=== PATIENT | male | born 1950 | race Caucasian/White ===

== ENCOUNTER → 2019-02-09 | Outpatient (CLI) | payer SELFPAY | PROVIDERS: Family Provider Family Medicine; PCP Family Medicine; Visit Provider Urology | DX: N20.0 Calculus of kidney (principal); I87.8 Other specified disorders of veins; M43.8X6 Other specified deforming dorsopathies, lumbar region | CPT/HCPCS: 74018 ==

== ENCOUNTER 2019-02-24 14:26 | Outpatient (CLI) | payer MEDICARE, OTHER, SELFPAY ==
--- NOTE | 2019-02-24 14:36 | XRR_ITS ---
PROCEDURE INFORMATION: Exam: XR Abdomen, 1 View Exam date and time: 02/24/2019 2:54 PM Age: 68 years old Clinical indication: Condition or disease; Other: Renal calculi TECHNIQUE: Imaging protocol: XR of the abdomen. Views: Frontal supine view of the abdomen. 1 View. COMPARISON: CR KUB (Abdomen) [id number] 02/09/2019 10:39 AM FINDINGS: Gastrointestinal tract: There is mildly increased stool noted in the ascending colon. Organs: RIGHT mid-upper lateral renal 2.2 mm calyceal calculus. The previous RIGHT renal lower pole calyceal calculus is not currently identified. LEFT upper renal calculi redemonstrated, the largest in the 5 mm. Vasculature: LEFT pelvic phleboliths. Bones/joints: Thoracic spine vertebral body marginal osteophytes are noted at multiple levels. Mild rightward lumbar spinal curvature. Bilateral lower lumbar facet primary osteoarthritis. XR/XR KUB [id number] IMPRESSION: 1. Bilateral renal calyceal lithiasis, similar to preceding study with exception of nonvisible a very previously demonstrated RIGHT renal lower pole calyceal calculus. 2. Mild RIGHT abdominal colonic constipation.
== END 2019-02-24 14:27 | disposition home or self-care (01) ==
PROVIDERS: Family Provider Family Medicine; PCP Family Medicine; Visit Provider Urology
DX: N20.0 Calculus of kidney (principal); K59.00 Constipation, unspecified
CPT/HCPCS: 74018; 81001

== ENCOUNTER 2020-02-23 12:47 | Outpatient (CLI) | payer MEDICARE, OTHER, SELFPAY ==
--- NOTE | 2020-02-23 13:00 | XR_ITS ---
WS: [id number] KUB, 02/23/2020 Clinical Data: KIDNEY AND URETERAL STONE Comparison: KUB, 02/24/2019. Findings: No abnormal intraabdominal masses or calcifications are seen. There is no dilatated small bowel or ev idence of obstruction. There is a decreased amount of gas in the left-sided abdomen and this could be secondary to fluid-juanjose led bowel loops or perhaps a left abdominal mass. Degenerative change of the dextroscoliosis of the l umbar spine is seen. XR/XR KUB [id number] Impression: 1. Negative for definite renal or ureteral calculi. 2.. Decrease in gas in left side of the abdomen which could be secondary to fluid-f illed bowel loops or a left abdominal mass.
== END 2020-02-23 12:48 | disposition home or self-care (01) ==
PROVIDERS: PCP Family Medicine; Visit Provider Nurse Practitioner Family
DX: N20.2 Calculus of kidney with calculus of ureter (principal)
CPT/HCPCS: 74018; 81003

== ENCOUNTER 2020-07-16 11:04 | Emergency (ER) | payer MEDICARE, OTHER, SELFPAY ==
--- NOTE | 2020-07-16 11:21 | XRR_ITS ---
PROCEDURE INFORMATION: Exam: XR Chest Exam date and time: 07/16/2020 11:24 AM Age: 69 years old Clinical indication: Dyspnea; Additional info: Reduced breath sounds TECHNIQUE: Imaging protocol: XR of the chest. Views: 1 view. COMPARISON: [facility] Chest 2 views 01/28/2019 10:44 AM FINDINGS: Lungs: Unremarkable. No consolidation. Pleural spaces: Unremarkable. No pleural effusion. No pneumothorax. Heart/Mediastinum: Unremarkable. No cardiomegaly. Bones/joints: Unremarkable. XR/XR chest 1V portable [id number] IMPRESSION: No acute findings.
--- NOTE | 2020-07-16 11:21 | CTR_ITS ---
PROCEDURE INFORMATION: Exam: CT Head Without Contrast Exam date and time: 07/16/2020 12:09 PM Age: 69 years old Clinical indication: Dizziness TECHNIQUE: Imaging protocol: Computed tomography of the head without contrast. Radiation optimization: All CT scans at this facility use at least one of these dose optimization techniques: automated exposure control; mA and/or kV adjustment per patient size (includes targeted exams where dose is matched to clinical indication); or iterative reconstruction. COMPARISON: No relevant prior studies available. RADIATION DOSE METRICS: Total DLP (mGy-cm): 955.82 FINDINGS: Brain: Normal. No hemorrhage. Unremarkable white matter. No mass effect. Cerebral ventricles: No ventriculomegaly. Paranasal sinuses: Visualized sinuses are unremarkable. No fluid levels. Mastoid air cells: Visualized mastoid air cells are well aerated. Bones/joints: Unremarkable. No acute fracture. Soft tissues: Unremarkable. CT/CT head wo con* [id number] IMPRESSION: No acute intracranial abnormality. Radiation Dose CTDIVOL = (mGy): DLP = 955.82 (mGy-cm)
--- NOTE | 2020-07-16 11:23 | ECG_ITS ---
[facility] Test Date: 2020-07-16 Pat Name: Brock Bustillos Department: Room: Gender: Male Nutrition Aide: : 1950 Requested By: José Small Order Number: [id number] Kelly MD: Vito Chavez M.D. Measurements Intervals [place] Rate: 71 P: 34 DC: 216 QRS: 7 QRSD: 109 T: 23 QT: 365 QTc: 399 Interpretive Statements SINUS RHYTHM WITH FIRST DEGREE AV BLOCK WITH OCCASIONAL VENTRICULAR PREMATURE COMPLEXES Compared to ECG 02/16/2015 10:14:19 No significant changes Electronically Signed On 07-16-2020 22:14:05 CDT by Vito Chavez M.D. [id number]
--- NOTE | 2020-07-16 11:24 | W.ED.GENADLT ---
HPI - General Adult General: Chief complaint: Dizziness Stated complaint: DIZZINESS,N/V, HEAD PAIN Time Seen by Provider: 07/16/20 11:13 History of Present Illness: HPI narrative: The patient is a 69-year-old male with past medical history hypertension and diabetes who comes to the ER complaining of dizziness for 45 minutes prior to arrival. Initial nurse thought he had a slightly droopy left face on presentation however the patient says he has a crooked smile. No weakness noted and on my exam he has a perfectly normal smile. No weakness or neurologic deficits. He says he began to feel dizzy which sometimes happens after a hard day of work however this morning he has not worked very hard. He did work very hard clearing out some wood yesterday. He says the dizziness is improving and he feels significantly better than he did on his way to the ER. No history of strokes or heart attacks. Onset (ago): minute(s) (45) Severity: mild Relieving factors: none Exacerbating factors: none Associated symptoms: Reports no associated symptoms; Deny chest pain, confusion, dyspnea, headache(s), rash or palpitations Review of Systems General: Reports: 10 or more systems reviewed and unremarkable except in HPI and below Const: Denies: fatigue Eyes: Denies: change in vision, blurry vision or eye redness ENMT: Denies: throat pain, swelling of lips/tongue, ear or mastoid pain or nasal congestion Card: Denies: chest pain, palpitations, irregular heart rhythm, edema, dyspnea on exertion or orthopnea Resp: Denies: dyspnea, productive cough or non-productive cough GI: Denies: abdominal pain, diarrhea or GI cramping : Denies: flank pain, urinary frequency or urinary urgency Musc: Denies: neck pain, back pain, extremity pain, joint pain, joint redness, limited range of motion or muscle weakness Skin/Breast: Denies: rash, pruritus, erythema, skin pain or skin tenderness Neuro: Reports: other (Dizziness); Denies: headache(s), numbness in extremities, weakness in extremities, sensory changes, difficulty walking, dizziness, confusion or Slurred speech present Psych: Denies: anxiety or depression Endo: Denies: polyuria All/Imm: Denies: urticaria, throat swelling or tongue swelling PFS ED PFSH: Medical History (Updated 07/16/20 @ 13:27 by José Small MD) HTN (hypertension) Type 2 diabetes mellitus Uric acid urolithiasis Urinary tract infection, site not specified Surgical History S/P extracorporeal shock wave therapy Status post laser lithotripsy of ureteral calculus Family History Family/Other CAD (coronary artery disease) Hypertension Social History Smoking and tobacco status: never smoked Alcohol intake: never Marital status: Current occupational status: employed Physical Exam Const: COMMON NORMALS: no acute distress, average body habitus, patient oriented x3, no limitations, healthy appearing, alert and well nourished GENERAL APPEARANCE: cooperative, comfortable, well kempt and well developed ORIENTATION/CONSCIOUSNESS: Yes awake, Yes oriented to person, Yes oriented to place and Yes oriented to time HENMT: COMMON NORMALS: normocephalic, external ears normal and Normal external nose present HEAD & SCALP: normal to inspection and normocephalic NOSE: Normal external nose present EXTERNAL EAR: Yes external ears normal MOUTH: Normal oral and palatal mucosa present THROAT: posterior oropharynx normal Eye: COMMON NORMALS: Equal, round and reactive pupils present and EOMs intact bilaterally GENERAL EYE: appearance normal, both eyes and all related structures PUPIL: Yes Equal, round and reactive pupils present Neck/C-Spine: COMMON NORMALS: full ROM, no lymphadenopathy, no meningeal signs and no JVD GENERAL: Yes normal visual inspection Lymph: LYMPHATIC: no lymphadenopathy noted Chest: COMMONS NORMALS: normal inspection of the chest and normal palpation of entire chest wall Resp: COMMON NORMALS: normal respiratory effort, No retractions, No use of accessory muscles, clear to auscultation bilaterally and percussion normal EFFORT & INSPECTION: Yes able to speak in complete sentences AUSCULTATION: clear to auscultation bilaterally PERCUSSION: percussion normal Cardio: COMMON NORMALS: no JVD, regular rate, S1 normal heart sound present, S2 normal heart sound present and Peripheral pulses 2+ throughout RATE: regular rate RHYTHM: abnormal rhythm HEART SOUNDS: S1 normal heart sound present and S2 normal heart sound present PERIPHERAL PULSES: Peripheral pulses 2+ throughout OTHER: Multiple PVCs on exam. GI: COMMON NORMALS: Normal to inspection, nondistended, normoactive bowel sounds present, Soft to palpation, non-tender and no masses INSPECTION: Yes normal to inspection PALPATION: Yes Soft to palpation : COMMON NORMALS: Yes no CVA tenderness BLADDER/KIDNEY EXAM: Yes no CVA tenderness Back/Pelvis: COMMON NORMALS: no CVA tenderness, thoracic and lumbar spine normal to inspection, no thoracic nor lumbar tenderness and thoraco-lumbar ROM normal Extremity: COMMON NORMALS: normal to inspection, full ROM, capillary refill normal, no joint enlargement and no pedal edema GENERAL: Yes normal exam except as noted Neuro: COMMON NORMALS: patient oriented x3, CN's II-XII intact bilaterally, moves all extremities, no focal motor deficits, no sensory deficits noted and gait normal SENSORIUM/ORIENTATION: Yes alert, Yes oriented to person, Yes oriented to place and Yes oriented to time MENINGEAL SIGNS: Yes no meningeal signs Psych: COMMON NORMALS: mental status grossly normal, Normal thought process present, cooperative, normal affect and speech normal APPEARANCE: Yes well kempt ATTITUDE: Yes calm SPEECH: Yes normal speech THOUGHT PROCESS: Normal thought process present Skin: COMMON NORMALS: no rashes or lesions noted GENERAL SKIN EXAM: no rashes or lesions noted Course Vital Signs: Vital signs: Vital Signs Temperature 98.2 F 07/16/20 11:35 Pulse Rate 74 07/16/20 12:11 Respiratory Rate 18 07/16/20 12:11 Blood Pressure 98/66 07/16/20 12:11 Pulse Oximetry 95 07/16/20 12:11 MDM - General Adult MDM Narrative: Medical decision making narrative: The patient came to the ER complaining of dizziness which was of unclear cause but possibly related to missing a meal and not drinking so well for the last day. IV fluids and meclizine resolved his symptoms. Head CT and carotid ultrasounds were normal. No strokelike symptoms in the ED. Recommended he follow-up with neurology and placed a case management referral for him. He also had some PVCs noted that he was asymptomatic of them. I recommended he follow-up with cardiology as well to discuss further. Also he had slightly low sodium which is again possibly related to his missing a meal though unclear. I recommended he get it rechecked within a week at his primary care physician's office and return to the ER at anytime with worsening symptoms. Lab Data: Labs: Lab Results 07/16/20 07/16/20 07/16/20 Range/Units 11:44 11:51 11:51 WBC 7.8 (4.0-10.0) 10^3/ uL RBC 5.19 (4.1-5.3) 10^6/u L Hgb 14.8 (11.7-16.6) g/dL Hct 43.9 (42.0-52.0) % MCV 84.6 (80-94) fL MCH 28.5 (28.0-34.0) pg MCHC 33.7 (30.0-36.0) g/dL RDW 12.7 (12.1-15.1) % Plt Count 199 (130-400) 10^3/c mm MPV 10.2 (7.4-10.4) fL Neut % (Auto) 60.5 % Lymph % (Auto) 24.6 % [place] % (Auto) 10.1 % Eos % (Auto) 3.6 % Baso % (Auto) 0.8 % Neut # (Auto) 4.75 (1.8-7.7) 10^3/u L Lymph # (Auto) 1.9 (0.8-4.8) 10^3/u L [place] # (Auto) 0.8 (0.2-0.9) 10^3/u L Eos # (Auto) 0.3 (0.0-0.8) 10^3/u L Baso # (Auto) 0.1 (0.0-0.1) 10^3/u L Nucleated RBC % (a uto) 0 % Nucleated RBCs # 0.0 /100WBC D-Dimer 0.34 (0-0.59) ug/mIFE U Sodium (136-145) mmol/L Potassium (3.5-5.1) mmol/L Chloride (98-107) mmol/L Carbon Dioxide (22-29) mmol/L Anion Gap (5-19) BUN (8-23) mg/dL Creatinine (0.7-1.2) mg/dL GFR Calculation (90-130) mL/min Glucose (65-115) mg/dL POC Glucose 203 H (70-110) mg/dL Calculated Osmolal ity (285-295) mOsm/k g Lactate (0.5-2.2) mmol/L Calcium (8.5-10.5) mg/dL Total Bilirubin (0.15-1.2) mg/dL AST (0-40) U/L ALT (0-41) U/L Alkaline Phosphata se (40-130) IU/L Troponin T Baselin e (0-15) ng/L NT-Pro-B Natriuret Pep (0-125) pg/mL Total Protein (6.6-8.7) g/dL Albumin (3.5-5.2) g/dL Globulin (1.3-4.6) g/dL 07/16/20 07/16/20 07/16/20 Range/Units 11:51 11:51 11:51 WBC (4.0-10.0) 10^3/ uL RBC (4.1-5.3) 10^6/u L Hgb (11.7-16.6) g/dL Hct (42.0-52.0) % MCV (80-94) fL MCH (28.0-34.0) pg MCHC (30.0-36.0) g/dL RDW (12.1-15.1) % Plt Count (130-400) 10^3/c mm MPV (7.4-10.4) fL Neut % (Auto) % Lymph % (Auto) % [place] % (Auto) % Eos % (Auto) % Baso % (Auto) % Neut # (Auto) (1.8-7.7) 10^3/u L Lymph # (Auto) (0.8-4.8) 10^3/u L [place] # (Auto) (0.2-0.9) 10^3/u L Eos # (Auto) (0.0-0.8) 10^3/u L Baso # (Auto) (0.0-0.1) 10^3/u L Nucleated RBC % (a uto) % Nucleated RBCs # /100WBC D-Dimer (0-0.59) ug/mIFE U Sodium 129 L (136-145) mmol/L Potassium 4.4 (3.5-5.1) mmol/L Chloride 96 L (98-107) mmol/L Carbon Dioxide 22 (22-29) mmol/L Anion Gap 15.4 (5-19) BUN 38 H (8-23) mg/dL Creatinine 1.2 (0.7-1.2) mg/dL GFR Calculation 59.9 L (90-130) mL/min Glucose 212 H (65-115) mg/dL POC Glucose (70-110) mg/dL Calculated Osmolal ity 283 L (285-295) mOsm/k g Lactate 1.7 (0.5-2.2) mmol/L Calcium 8.6 (8.5-10.5) mg/dL Total Bilirubin 0.4 (0.15-1.2) mg/dL AST 14 (0-40) U/L ALT 17 (0-41) U/L Alkaline Phosphata se 60 (40-130) IU/L Troponin T Baselin e 14 (0-15) ng/L NT-Pro-B Natriuret Pep 59 (0-125) pg/mL Total Protein 6.8 (6.6-8.7) g/dL Albumin 4.1 (3.5-5.2) g/dL Globulin 2.7 (1.3-4.6) g/dL Discharge Plan Discharge Patient Disposition: Home Clinical Impression: Dizziness, Asymptomatic PVCs, Hyponatremia Condition: Stable Prescriptions: New meclizine 25 mg tablet 25 mg PO TID PRN (Reason: dizziness) Qty: 10 RF: 0 No Action potassium citrate 10 mEq (1,080 mg) tablet extended release 10 meq PO DAILY RF: 0 rosuvastatin 10 mg tablet 10 mg PO DAILY RF: 0 lisinopril-hydrochlorothiazide 20-12.5 mg tablet 1 tab PO DAILY RF: 0 metformin 1,000 mg tablet 1,000 mg PO BID RF: 0 Januvia 100 mg tablet 100 mg PO DAILY RF: 0 Invokana 300 mg tablet 300 mg PO DAILY RF: 0 Discharge Orders: Discharge ED (Routine); Ordered 07/16/20 Ordered By: José Small Referrals: Leobardo Cheney MD [Primary Care Provider] - Discharge Diet: Advance as tolerated Discharge Activity: Resume usual activity Patient Instructions: Hyponatremia (ED), Dizziness (ED), Premature Ventricular Contractions (ED), Opioid Safety Activity Restrictions/Additional Instructions: 1. Dizziness: Your dizziness is of unclear cause but has improved with fluids and meclizine. Please take the meclizine as needed for your dizziness and stay hydrated as well as eating regular meals. I have placed a case management referral to help you get an appointment with neurology and they should be calling you tomorrow to help set up an appointment. 2. Premature ventricular contractions: You have had a slightly irregular heartbeat here known as PVCs. They are usually no problem but I have placed a case management referral to help you get in with a chucking lathe operator to discuss further. 3. Hyponatremia: You have slightly low salt. Please eat regular meals and follow-up with your primary care physician later this week to recheck it and discuss further. You may return to the ER at anytime with worsening symptoms for further evaluation otherwise follow-up with your primary care physician and the specialists as directed. Coding Level of Care Code ED Curtain Inspector for Bernadette Bartlett Exam Comprehensive
--- NOTE | 2020-07-16 11:34 | USR_ITS ---
PROCEDURE INFORMATION: Exam: US Duplex Bilateral Extracranial Arteries Exam date and time: 07/16/2020 12:11 PM Age: 69 years old Clinical indication: Dizziness; Additional info: Dizzy. Carotid stenosis? TECHNIQUE: Imaging protocol: Real-time Duplex ultrasound scan of the bilateral carotid and vertebral arteries combining reddy scale, color Doppler and spectral waveform analysis. Bilateral exam. COMPARISON: US ROR carotid duplex BI 08/29/2015 10:18 AM FINDINGS: Right common carotid artery: Scattered plaque. No occlusion or stenosis. Waveforms are normal. PSV 116 cm/s. Right internal carotid artery: Scattered plaque No occlusion or stenosis. Waveforms are normal. PSV 67 cm/s Right ICA/CCA ratio: 0.68 Right external carotid artery: No stenosis in the origin. Right vertebral artery: Unremarkable. Antegrade flow. Left common carotid artery: Scattered plaque. No occlusion or stenosis. Waveforms are normal. PSV 94 cm/s Left internal carotid artery: Scattered plaque. No occlusion or stenosis. Waveforms are normal. PSV 77 cm/s Left ICA/CCA ratio: 0.83 Left external carotid artery: No stenosis in the origin. Left vertebral artery: Unremarkable. Antegrade flow. US/CV carotid duplex BI* [id number] IMPRESSION: No carotid arterial stenosis. REFERENCES: SRU CRITERIA. The degree of internal carotid artery stenosis is based on criteria defined by the Society of Radiologists in Ultrasound (SRU). Normal is no stenosis. Mild is less than 50% stenosis. Moderate is 50-69% stenosis. Severe is greater than 69% stenosis to near occlusion. Near occlusion is a markedly narrowed lumen. Total occlusion is no detectable patent lumen.
[2020-07-16 11:35] VITALS: BP 93/65; PULSE 69; RESP 18; TEMP 36.8; O2SAT 94; BMI 27.9
[2020-07-16 11:41] VITALS: BP 96/68; PULSE 75; RESP 24; O2SAT 94
[2020-07-16 11:46] LABS: Glucose Point of Care 203 mg/dL (70-110)
[2020-07-16] MEDS: sodium chloride 0.9% 1,000 ML 999 ML IV (11:47)
[2020-07-16] MEDS: meclizine 25 mg tablet PO (11:47)
[2020-07-16 11:59] LABS: Basophils # 0.1 10^3/uL (0.0-0.1); Basophils % 0.8 %; Eosinophils # 0.3 10^3/uL (0.0-0.8); Eosinophils % 3.6 %; Hematocrit 43.9 % (42.0-52.0); Hemoglobin 14.8 g/dL (11.7-16.6); Lymphocytes # 1.9 10^3/uL (0.8-4.8); Lymphocytes % 24.6 %; Mean Corpuscular HGB Conc 33.7 g/dL (30.0-36.0); Mean Corpuscular Hemoglobin 28.5 pg (28.0-34.0); Mean Corpuscular Volume 84.6 fL (80-94); Mean Platelet Volume 10.2 fL (7.4-10.4); Monocytes # 0.8 10^3/uL (0.2-0.9); Monocytes % 10.1 %; Neutrophils # 4.75 10^3/uL (1.8-7.7); Neutrophils % 60.5 %; Nucleated Red Blood Cells % 0 %; Platelet Count 199 10^3/cmm (130-400); Red Blood Count 5.19 10^6/uL (4.1-5.3); Red Cell Distribution Width 12.7 % (12.1-15.1); White Blood Count 7.8 10^3/uL (4.0-10.0)
[2020-07-16 12:11] VITALS: BP 98/66; PULSE 74; RESP 18; O2SAT 95
[2020-07-16 12:33] LABS: Lactate (Lactic Acid level) 1.7 mmol/L (0.5-2.2)
[2020-07-16 12:34] LABS: Troponin(5th) Baseline 14 ng/L (0-15)
[2020-07-16 12:43] LABS: Alanine Aminotransferase 17 U/L (0-41); Albumin Level 4.1 g/dL (3.5-5.2); Alkaline Phosphatase 60 IU/L (40-130); Anion Gap 15.4 (5-19); Aspartate Amino Transferase 14 U/L (0-40); Blood Urea Nitrogen 38 mg/dL (8-23); Calcium 8.6 mg/dL (8.5-10.5); Carbon Dioxide 22 mmol/L (22-29); Chloride 96 mmol/L (98-107); Globulin 2.7 g/dL (1.3-4.6); Glomerular Filtration Rate 59.9 mL/min (90-130); Glucose 212 mg/dL (65-115); NT Pro B Type Natriuretic Pept 59 pg/mL (0-125); Osmolality Calculated 283 mOsm/kg (285-295); Potassium 4.4 mmol/L (3.5-5.1); Sodium 129 mmol/L (136-145); Total Bilirubin 0.4 mg/dL (0.15-1.2); Total Protein 6.8 g/dL (6.6-8.7)
[2020-07-16 12:50] LABS: D Dimer 0.34 ug/mIFEU (0-0.59)
[2020-07-16 13:35] LABS: Add Urine Microscopic? NO; Charge for UA Resulting for Rev
[2020-07-16 13:40] VITALS: BP 112/66; PULSE 72; RESP 18; O2SAT 97
[2020-07-16 13:42] LABS: Bilirubin Urine Neg (Negative); Blood Urine Neg (Negative); Glucose Urine UA 4+ (Normal); Ketones Urine Negative (Negative); Leukocyte Esterase Urine Negative (Negative); Nitrate Urine Negative (Negative); Protein Urine Neg (Negative); Specific Gravity, Urine 1.015 (1.005-1.030); Urine Appearance Clear (CLEAR); Urine Color Straw (Yellow); Urobilinogen Urine Norm (Negative); pH Urine 5 (5-7)
--- NOTE | 2020-07-18 07:24 | DCPLANNER ---
industrial relations manager had message to schedule a follow up appointment for patient with Dr. Alvarez for dizziness. industrial relations manager emailed patients information to the Iman at Dr. Mckinney office. Patients information will be printed and reviewed. Clinic will call patient with appointment information.
--- NOTE | 2020-07-24 07:29 | DCPLANNER ---
Patient has a follow up appointment scheduled for Friday, August 07, 2020 at 11:45 with Leobardo at neurology. Clinic will call patient with appointment information.
--- NOTE | 2020-09-07 07:26 | DCPLANNER ---
Patient had a follow up appointment scheduled for 08.07.20 with Leobardo at neurology - patient did attend appointment.
== END 2020-07-16 13:46 | disposition home or self-care (01) ==
PROVIDERS: Emergency Provider Family Medicine; PCP Family Medicine
DX: R42 Dizziness and giddiness (principal); I49.3 Ventricular premature depolarization; E87.1 Hypo-osmolality and hyponatremia; Z79.84 Long term (current) use of oral hypoglycemic drugs; I10 Essential (primary) hypertension; E11.9 Type 2 diabetes mellitus without complications
CPT/HCPCS: 36415; 36416; 70450; 71045; 80053; 81003; 82962; 83605; 83880; 84484; 85025; 85378; 93005; 93880; 96360; 99284; J7030; J8597

== ENCOUNTER 2020-07-21 14:56 | Outpatient (CLI) | payer MEDICARE, OTHER, SELFPAY ==
--- NOTE | 2020-07-21 15:15 | MR_ITS ---
WS: [id number] MRI LUMBAR SPINE NONCONTRAST HISTORY: RADICULAR LOW BACK PAIN - WORSENING COMPARISON: 03/16/2012 TECHNIQUE: Sagittal and axial multisequence imaging is submitted. Straightening of the normal cervical lordosis. Mild narrowing of the central cervical canal at C4-5 a nd C5-6 due to disc and osteophyte disease. Mild RIGHT curvature lower lumbar spine. 4 mm retrolisthesis of L3 and L4. 2 mm retrolisthesis of L2 and L5. No marrow edema or fractures. There is moderate disc space narrowing and desiccation througho ut the lumbar spine. Conus terminates normally at L1-2 disc level. L1-L2: Mild osteophytic ridging without significant stenosis. L2-L3: Diffuse osteophytic ridging and annular disc bulging and ligamentum flavum hypertrophy. Disc c ontacts the L3 nerve root in the lateral recess. Mild LEFT subarticular recess and foraminal stenosis . L3-L4: Diffuse severe annular disc bulging with osteophytic ridging. Ligamentum flavum and facet arth ritis. Severe central and bilateral lateral recess and subarticular stenosis. Only mild narrowing of the foramen. L4-L5: Severe asymmetric disc bulging with ligamentum flavum disease and facet arthritis. Severe cent ral, bilateral subarticular recess and RIGHT foraminal stenosis. Moderate LEFT foraminal stenosis. Fl uid in the facet joints bilaterally. L5-S1: Diffuse annular disc bulging with a focal central disc protrusion. This protrusion is contacti ng and slightly displacing the S1 nerve roots bilaterally. Mild bilateral foraminal stenosis. Moderat e bilateral subarticular recess narrowing. LEFT renal cyst. MR/MR lumbar spine wo con* [id number] IMPRESSION: 1. Significant progression of degenerative spondylosis and stenosis throughout the lumbar spine since the prior examination. 2. Severe central, bilateral lateral recess and subarticular recess stenosis a t L3-4 with significant contact on the L3 and L4 nerve roots. 3. Severe central, bilateral subarticular recess and RIGHT foraminal stenosis at L4-5 with moderate LEFT foraminal stenosis. 4. Moderate bilateral subarticular recess stenosis and disc contacts the S1 ne rve roots bilaterally at the L5-S1 level. 5. Mild disc contact on the LEFT L3 nerve root in the lateral recess at L2-3.
== END 2020-07-21 14:57 | disposition home or self-care (01) ==
PROVIDERS: PCP Family Medicine; Visit Provider Family Medicine
DX: M54.16 Radiculopathy, lumbar region (principal); M54.5 Low back pain; M48.08 Spinal stenosis, sacral and sacrococcygeal region; M48.061 Spinal stenosis, lumbar region without neurogenic claudication; M47.816 Spondylosis without myelopathy or radiculopathy, lumbar region
CPT/HCPCS: 72148

== ENCOUNTER → 2020-08-07 11:35 | Outpatient (BNVA) | payer MEDICARE, OTHER, SELFPAY | PROVIDERS: PCP Family Medicine; Referring Provider Family Medicine; Visit Provider Nurse Practitioner | DX: R42 Dizziness and giddiness (principal); M54.42 Lumbago with sciatica, left side | CPT/HCPCS: 99203 ==

== ENCOUNTER 2020-10-09 12:23 | Outpatient (RCR) | payer MEDICARE, OTHER, SELFPAY | END 2020-10-10 23:59 | disposition home or self-care (01) | LOC: SPT 12:23 | PROVIDERS: PCP Family Medicine; Referring Provider Registered Nurse; Visit Provider Registered Nurse | DX: R29.898 Other symptoms and signs involving the musculoskeletal system (principal); M51.36 Other intervertebral disc degeneration, lumbar region; M48.061 Spinal stenosis, lumbar region without neurogenic claudication; M54.16 Radiculopathy, lumbar region | CPT/HCPCS: 97110; 97162 ==

== ENCOUNTER 2020-10-11 06:00 | Outpatient (RCR) | payer MEDICARE, OTHER, SELFPAY | END 2020-11-09 23:59 | disposition home or self-care (01) | LOC: SPT 06:00 | PROVIDERS: PCP Family Medicine; Referring Provider Registered Nurse; Visit Provider Registered Nurse | DX: R29.898 Other symptoms and signs involving the musculoskeletal system (principal); M51.36 Other intervertebral disc degeneration, lumbar region; M48.061 Spinal stenosis, lumbar region without neurogenic claudication; M54.16 Radiculopathy, lumbar region | CPT/HCPCS: 97110 ==

== ENCOUNTER 2021-03-20 15:05 | Outpatient (CLI) | payer MEDICARE, OTHER, SELFPAY ==
--- NOTE | 2021-03-20 15:11 | XR_ITS ---
WS: [id number] XR KUB [id number] REASON FOR EXAM: URIC ACID UROLITHIASIS FINDINGS: Previous CT 02/07/2019 identified right renal calculi that are not readily identifiable on this exami nation. There appears to be a calculus overlying the upper pole of the left kidney congruent with the previou s CT scan. No other urinary tract calculi identified. XR/XR KUB [id number] IMPRESSION: Probable upper pole calculus left kidney.
== END 2021-03-20 15:06 | disposition home or self-care (01) ==
LOC: RAD 15:11
PROVIDERS: PCP Family Medicine; Visit Provider Urology
DX: N20.9 Urinary calculus, unspecified (principal)
CPT/HCPCS: 74018; 81003; G0103

== ENCOUNTER → 2021-03-28 15:14 | Outpatient (BNVA) | payer MEDICARE, OTHER, SELFPAY | PROVIDERS: PCP Family Medicine; Visit Provider Urology | DX: R97.20 Elevated prostate specific antigen [PSA] (principal) | CPT/HCPCS: 88305; 88342 ==

== ENCOUNTER 2021-04-09 13:40 | Outpatient (CLI) | payer MEDICARE, OTHER, SELFPAY ==
--- NOTE | 2021-04-09 14:00 | CT_ITS ---
WS: [id number] CT ABDOMEN AND PELVIS WITH AND WITHOUT CONTRAST HISTORY: [facility]OST[facility] TECHNIQUE: Unenhanced 5 mm axial imaging first performed through the abdomen. Post contrast imaging t hrough the abdomen and pelvis. Oral contrast has been provided. Sagittal and coronal reformats are s ubmitted. All CT scans at [facility] use at least one of these dose optimization techniques: automated exposure control; mA and/or kV adjustment per patient size (includes targeted exams where d ose is matched to clinical indication); or iterative reconstruction. CONTRAST: Visipaque 320; 95 mL IV. DLP: 4040.43 mGy.cm COMPARISON: 02/07/2019 No change in size of the 10 mm nodule which is well-circumscribed in the RIGHT lower lobe. Heart size is normal. Small hiatal hernia. Normal liver. Splenic granulomatous. Normal gallbladder and adrenal glands. Normal pancreas. Very mil d atherosclerosis aorta with no aneurysm or dissection. Atherosclerotic calcification continues into the iliac arteries. RIGHT kidney normal size. Mild atrophy LEFT kidney. Mild bilateral perinephric stranding. No calcific ations in the RIGHT kidney. 8mm calcification superior pole LEFT kidney. Small exophytic cyst 8 mm in the mid RIGHT kidney. Cortical cyst measures 1.1 cm in the superior pole LEFT kidney. No solid mass. No GI tract obstruction. Normal appendix. No small bowel obstruction. No ascites or adenopathy. 8mm LEFT iliac lymph node involving the proximal internal iliac artery. No enlarged pelvic lymph nodes. No inguinal lymph nodes. Well-distended urinary bladder. Normal prominen ce of the prostate gland with a few calcifications. No significant encroachment into the urinary blad lindsey. Degenerative scoliosis lumbar spine. No osteoblastic or osteolytic bone disease. CT/CT abdomen pelvis wo/w [id number] IMPRESSION: 1. No renal obstruction. 2. Nonobstructing 8 mm calcification superior pole LEFT kidney. 3. Mild perinephric stranding with no solid mass. 4. No significant adenopathy. No ascites. 5. No significant enlargement of the prostate gland. No encroachment into the urinary bladder. 6. Stable 10 mm nodule RIGHT lower lobe for multiple prior years.
[2021-04-09 15:06] LABS: Blood Urea Nitrogen 24 mg/dL (8-23)
[2021-04-09] MEDS: iodixanol 320 mg/mL 100mL Btl IV (15:13)
== END 2021-04-09 13:41 | disposition home or self-care (01) ==
LOC: RAD 13:41
PROVIDERS: PCP Family Medicine; Visit Provider Urology
DX: C61 Malignant neoplasm of prostate (principal); N20.0 Calculus of kidney; R91.1 Solitary pulmonary nodule
CPT/HCPCS: 74178; 82565; 84520

== ENCOUNTER 2021-04-11 09:05 | Outpatient (CLI) | payer MEDICARE, OTHER, SELFPAY ==
--- NOTE | 2021-04-11 09:14 | NM_ITS ---
WS: [id number] NUCLEAR MEDICINE BONE SCAN Radiopharmaceutical: [id number] Tc-99m MDP mCi IV Injection site: RIGHT antecubital Postinjection imaging delay: 1 hr CLINICAL INFORMATION: PROST[facility]ER COMPARISON: None. FINDINGS: Bone lesions: There are no osseous lesions suspicious for metastatic disease. Soft tissue contours: Normal. Kidneys: Normal. Other findings: Degenerative arthritis both AC joints and sternoclavicular joints. Punctate focal uptake in the LEFT upper cervical posterior elements likely degenerative. Degenerative type uptake in the RIGHT dorsal m idfoot. NM/NM bone scan whole body* [id number] IMPRESSION: No evidence of osseous metastatic disease.
== END 2021-04-11 09:06 | disposition home or self-care (01) ==
LOC: RAD 09:11
PROVIDERS: PCP Family Medicine; Visit Provider Urology
DX: C61 Malignant neoplasm of prostate (principal)
CPT/HCPCS: 78306; A9561

== ENCOUNTER 2021-04-23 12:59 | Outpatient (CLI) | payer MEDICARE, OTHER, SELFPAY ==
--- NOTE | 2021-04-23 15:53 | N.ONRAD NP_ITS ---
Radiation Oncology New Patient Visit Patient: Brock Bustillos MR#: [id number] : 1950> Age: 70> Sex: Male> Dictated by: Dr. Elian Cardoza Date of Service: 04/23/2021 Referring Physician(s) : Dr. Micheal Alvarez Diagnosis: Prostate, adenocarcinoma, PSA 22, [place] score 3+4 = 7 in 3 cores from the right, [place] score 4+3 = 7 in 3 cores from the left, grade group 3, stage [id number] Radiotherapy to date: Summary > No prior radiation therapy. Chief Complaint / History of Present Illness: Mr. Bustillos is a 70-year-old gentleman followed by Dr. Alvarez for kidney stones. On a routine checkup he was found to have induration of the left lobe of the prostate. His PSA returned 22. Based on these findings, he underwent ultrasound guided biopsies. The ultrasound revealed a prostate volume of 27 cc.0 A hypoechoic area was noted in the right midgland and base. Another hypoechoic area was noted in the left mid gland and base. Biopsies were performed. He was found to have extensive disease in the gland. He had 3 cores from the right that contained [place] score 3+4 = 7 with 20 to 40% involvement. On the left 3 cores were involved with Kunal score 4+3 = 7 with 60 to 90% involvement of these cores. He underwent CT scan and bone scan for staging. Neither showed evidence of metastatic disease. Mr. Bustillos has had no significant troublesome urinary symptoms. He had mild obstructive symptoms following the biopsy. Currently the bladder is emptying well. Mr. Bustillos is referred to discuss radiation therapy. He will also be seeing Dr. Black in [place] for discussion of surgery. Current Medications: Canagliflozin, lisinopril-hydroCHLOROthiazide, metFORMIN HCl, potassium Chloride Sabra ER, rosuvastatin Calcium, sITagliptin Phosphate. Allergies: Codeine Sulfate. Medical History: Hypertension, lumbar pain with radiation to left leg, type II diabetes, uric acid urolithiasis. No history of collagen vascular disease. No previous radiation therapy. Surgical History: Extracorporeal shock therapy and laser lithotripsy. Family History: Social History: Last screened on 04/16/2021 - Never smoked. Last screened on 04/16/2021 - Never drank. Current Complaints / Review of Systems: . Sedentary activity. Normal appetite. Blood sugars run about 180. His daughter states that he seems satisfied with that number and is not motivated to lower the blood sugar. Pulmonary: No unusual cough, sputum production, hemoptysis, or shortness of breath. Cardiac: he notices occasional irregularity when checking his pulse. He states that he notices a skipped about every 5-8 beats. Gastrointestinal: no complaints. : No difficulty emptying the bladder. No significant hesitancy, frequency, intermittent, pyuria, hematuria, dysuria. Musculoskeletal: He has chronic low back pain from degenerative disease in the spine. He has pain in both ankles that is chronic, greater on the right. Vital Signs: Performed on 04/23/2021 1:37 PM BMI - 27.891 kg/m2 (high), Height - 73 in, Weight - 211.4 lbs, Temperature - 97.3 f, Pulse - 85 /min, Respiration - 17 /min, O2 Sat - 95 % (low), Pain - 0, Fatigue - 0 and BP - 126/ 77 mm(hg). Physical Exam: Alert, oriented, no acute distress. No cervical or supraclavicular lymphadenopathy. Lungs clear to percussion. On auscultation no rales rhonchi or wheezes. Heart rhythm regular. No irregular beats heard, though the heart sounds were distant. No murmur or gallop or rub. Abdomen: no distention. No organomegaly or mass or tenderness. Rectal exam reveals normal sphincter tone. No rectal masses. The prostate is small. The contour is preserved with no induration noted in the sulci. The left mid gland and the right base are both quite firm. No tenderness. Musculoskeletal: No bone tenderness. Normal gait. Performance Status: Karnofsky: 80 Pathology: See diagnosis for summary Lab: PSA 22 Imaging: See HPI Impression: Asymptomatic prostate carcinoma, stage [id number], grade group 3, risk group high. I discussed the pathology with Mr. Tsai and his family. I discussed the NCCN guidelines. Either surgery or radiation with hormonal therapy is recommended. If radiation is delivered, treatment of pelvic nodes is recommended. I discussed a typical course of radiation delivered over 8 weeks. I reviewed side effects and possible complications. I discussed that a course of radiation usually has minimal effect on the overall performance status. I discussed the bowel and bladder symptoms that may occur. I discussed the likelihood of permanent impotence. I reviewed the very small risk of permanent injury to the bowels or bladder. I discussed that his history of poorly controlled blood sugars, hypertension, sedentary lifestyle, and bilateral involvement of the prostate cause me to lean toward recommending radiation. However, I told him he should keep an open mind about surgery and select the treatment modality that he is most satisfied with. I reviewed that hormonal therapy should definitely be part of treatment if he undergoes radiation. Multiple questions were answered. Plan: Mr. Bustillos will see Dr. Black in [place] and then make a final decision. Signed by: 04/23/2021 3:52:02 PM <<Signature on File>> Time spent with patient: CPT Code: CPT Code:
== END 2021-04-23 13:00 | disposition home or self-care (01) ==
LOC: ONCMED 13:07
PROVIDERS: PCP Family Medicine; Visit Provider Radiology Radiation Oncology
DX: C61 Malignant neoplasm of prostate (principal); I10 Essential (primary) hypertension; Z79.899 Other long term (current) drug therapy
CPT/HCPCS: 99205

== ENCOUNTER 2021-09-28 09:38 | Oncology outpatient (recurring) (ONCR) | payer MEDICARE, OTHER, SELFPAY ==
--- NOTE | 2021-09-28 10:33 | N.ONRAD NP_ITS ---
Radiation Oncology Consultation Patient Name: Brock Bustillos Date of : 1950 Date of Service: 09/28/2021 Attending Physician: Ender Lainez M.D. Brock Bustillos was seen in consultation this morning at the request of Ender Black M.D. for consideration of postoperative radiotherapy for the management of prostate cancer with a persistent PSA level following prostatectomy. He initially was diagnosed in March 2021 with prostate cancer. The initial PSA level was 22.8 ng/mL. A TRUS biopsy completed on February 19, 2019 diagnosed an adenocarcinoma of the prostate gland with a Kunal score 4+3 involving the left prostatic lobe. A laparoscopic robot-assisted prostatectomy with bilateral pelvic lymphadenectomy was performed by Ender Black M.D. on June 15, 2021. The pathology report (outside hospital records were requested and reviewed in [facility]) described a 4 cm x 5 cm x 3.8 cm prostate gland harboring an adenocarcinoma of the prostate (50% involvement) with a [place] score of 4+3 (pT2c). Surgical margins were negative. Perineural invasion was absent. A total of 2 pelvic lymph nodes (1 right pelvic lymph node and 1 left pelvic lymph node) were collected and did not harbor malignancy. The post-operative PSA was 11.1 ng/mL. Postoperative convalescence has been complicated by urinary hesitancy and incontinence. A cystoscopy in August identified a bladder neck contracture. A transurethral bladder neck contracture resection was completed on September 19, 2021. A PSMA scan (independently visualized in [facility]) ordered on September 20, 2021 demonstrated a 1.8 cm x 2.2 cm left iliac lymph node and a 1 cm x 1.1 cm right internal iliac lymph node, The patient was evaluated for salvage radiotherapy. I reviewed the recommendations The National Comprehensive Cancer Network Guidelines with consideration of androgen deprivation therapy for salvage radiotherapy. I also discussed the RTOG 9601 trial that determined 24 months of antiandrogen therapy to salvage radiotherapy resulted in an improvement in overall survival, the GETUG-AFU 16 and GETUG-AFU 17 that attested improvement in progression free survival to the patients randomized to radiotherapy in conjunction with short-term hormonal suppression, as well as, the RADICALS studies that demonstrated non-inferiority in progression free survival for salvage radiotherapy compared to adjuvant treatment. It is imperative to acknowledge that these trials did not include patients with aislinn disease. I also canvassed a retrospective publication in Urology of treatment for aislinn metastases that reported improved survival in patients offered ADT and radiotherapy. I would endorse a 5 week course of radiotherapy with concurrent gonadotropin releasing hormone agonist pharmacotherapy. Prior to beginning treatment, a planning CT scan with intravenous and oral contrast will be acquired in the treatment position to delineate the clinical target volume. Toxicities of pelvic radiotherapy were also canvassed. The patient has verbalized understanding would like proceed as recommended. The patient's medical treatment plan was discussed with Ender Black M.D. Signed by: Dr. Ender Lainez 09/28/2021 10:32:10 AM
== END 2021-10-10 23:59 | disposition home or self-care (01) ==
PROVIDERS: PCP Family Medicine; Visit Provider Radiology Radiation Oncology
DX: C61 Malignant neoplasm of prostate (principal); R39.11 Hesitancy of micturition; R32 Unspecified urinary incontinence; Z79.899 Other long term (current) drug therapy
CPT/HCPCS: 99215

== ENCOUNTER → 2021-10-04 13:09 | Outpatient (BNVA) | payer MEDICARE, OTHER, SELFPAY | PROVIDERS: PCP Family Medicine; Visit Provider Urology | DX: C61 Malignant neoplasm of prostate (principal); C77.5 Secondary and unspecified malignant neoplasm of intrapelvic lymph nodes; N32.0 Bladder-neck obstruction; N99.89 Other postprocedural complications and disorders of genitourinary system; N39.3 Stress incontinence (female) (male); N20.9 Urinary calculus, unspecified | CPT/HCPCS: 99215 ==

== ENCOUNTER 2021-10-11 06:00 | Outpatient (RCR) | payer MEDICARE, OTHER, SELFPAY | END 2021-11-09 23:59 | disposition home or self-care (01) | LOC: MPT 06:00 | PROVIDERS: PCP Family Medicine; Visit Provider Internal Medicine Medical Oncology | DX: C61 Malignant neoplasm of prostate (principal); C77.5 Secondary and unspecified malignant neoplasm of intrapelvic lymph nodes | CPT/HCPCS: 97110; 97140; 97161; 97530 ==

== ENCOUNTER 2021-10-11 09:12 | Oncology outpatient (recurring) (ONCR) | payer MEDICARE, OTHER, SELFPAY | END 2021-11-09 23:59 | disposition home or self-care (01) | PROVIDERS: PCP Family Medicine; Visit Provider Internal Medicine Medical Oncology | DX: C61 Malignant neoplasm of prostate (principal); C77.5 Secondary and unspecified malignant neoplasm of intrapelvic lymph nodes; Z79.818 Long term (current) use of other agents affecting estrogen receptors and estrogen levels; Z90.89 Acquired absence of other organs | CPT/HCPCS: 99204 ==

== ENCOUNTER 2021-11-10 06:00 | Outpatient (RCR) | payer MEDICARE, OTHER, SELFPAY | END 2021-12-10 23:59 | disposition home or self-care (01) | LOC: MPT 06:00 | PROVIDERS: PCP Family Medicine; Visit Provider Internal Medicine Medical Oncology | DX: C61 Malignant neoplasm of prostate (principal); C77.5 Secondary and unspecified malignant neoplasm of intrapelvic lymph nodes | CPT/HCPCS: 97110; 97140; 97530 ==

== ENCOUNTER 2021-12-11 01:00 | Outpatient (RCR) | payer MEDICARE, OTHER, SELFPAY | END 2021-12-11 21:26 | disposition home or self-care (01) | LOC: SPT 01:00 | PROVIDERS: PCP Family Medicine; Visit Provider Internal Medicine Medical Oncology | DX: C77.5 Secondary and unspecified malignant neoplasm of intrapelvic lymph nodes (principal); N32.0 Bladder-neck obstruction; N20.9 Urinary calculus, unspecified; N99.89 Other postprocedural complications and disorders of genitourinary system; N39.3 Stress incontinence (female) (male); C61 Malignant neoplasm of prostate | CPT/HCPCS: 52000; 81003; 87077; 87086; 87186; 97530; 99213 ==

== ENCOUNTER 2021-12-11 06:00 | Oncology outpatient (recurring) (ONCR) | payer MEDICARE, OTHER, SELFPAY | END 2022-01-09 23:59 | disposition home or self-care (01) | LOC: ONCMED 01-05 09:34 | PROVIDERS: PCP Family Medicine; Visit Provider Internal Medicine Medical Oncology | DX: C61 Malignant neoplasm of prostate (principal); C77.5 Secondary and unspecified malignant neoplasm of intrapelvic lymph nodes; Z79.818 Long term (current) use of other agents affecting estrogen receptors and estrogen levels; Z90.89 Acquired absence of other organs ==

== ENCOUNTER → 2021-12-11 14:22 | Outpatient (BNVA) | payer MEDICARE, OTHER, SELFPAY | PROVIDERS: PCP Family Medicine; Visit Provider Urology | DX: N32.0 Bladder-neck obstruction (principal); N20.9 Urinary calculus, unspecified; N99.89 Other postprocedural complications and disorders of genitourinary system; N39.3 Stress incontinence (female) (male); C61 Malignant neoplasm of prostate; C77.5 Secondary and unspecified malignant neoplasm of intrapelvic lymph nodes | CPT/HCPCS: 52000; 81003; 87077; 87086; 87186; 99213 ==

== ENCOUNTER 2022-01-22 11:47 | Oncology outpatient (recurring) (ONCR) | payer MEDICARE, OTHER, SELFPAY ==
[2022-01-22 12:08] LABS: Basophils # 0.1 10^3/uL (0.0-0.1); Eosinophils # 0.2 10^3/uL (0.0-0.8); Eosinophils % 3.7 %; Hematocrit 37.7 % (42.0-52.0); Hemoglobin 12.5 g/dL (11.7-16.6); Lymphocytes # 0.5 10^3/uL (0.8-4.8); Lymphocytes % 8.8 %; Mean Corpuscular HGB Conc 33.2 g/dL (30.0-36.0); Mean Corpuscular Hemoglobin 30.7 pg (28.0-34.0); Mean Corpuscular Volume 92.6 fl (80-94); Mean Platelet Volume 10.4 fL (7.4-10.4); Monocytes # 0.6 10^3/uL (0.2-0.9); Monocytes % 10.8 %; Neutrophils # 4.45 10^3/uL (1.8-7.7); Nucleated Red Blood Cells % 0 %; Platelet Count 177 10^3/cmm (130-400); Red Blood Count 4.07 10^6/uL (4.1-5.3); White Blood Count 5.9 10^3/uL (4.0-10.0)
[2022-01-22 12:34] LABS: Alanine Aminotransferase 18 U/L (0-41); Albumin Level 4.4 g/dL (3.5-5.2); Alkaline Phosphatase 64 U/L (40-130); Aspartate Amino Transferase 15 U/L (0-40); Blood Urea Nitrogen 26 mg/dL (8-23); Calcium 9.8 mg/dL (8.5-10.5); Carbon Dioxide 26 mmol/L (22-29); Chloride 88 mmol/L (98-107); Globulin 2.6 g/dL (1.3-4.6); Glucose 266 mg/dL (65-115); Osmolality Calculated 274 mOsm/kg (285-295); Sodium 125 mmol/L (136-145); Testosterone Total 2.5 ng/dL (193-740); Total Bilirubin 0.3 mg/dL (0.15-1.2)
[2022-01-22 12:35] LABS: Prostate Specific Antigen < 0.014 ng/mL (0-4)
[2022-01-22] MEDS: leuprolide 22.5 mg Kit IM (13:56)
== END 2022-02-09 23:59 | disposition home or self-care (01) ==
PROVIDERS: PCP Family Medicine; Visit Provider Internal Medicine Medical Oncology
DX: C61 Malignant neoplasm of prostate (principal); C77.5 Secondary and unspecified malignant neoplasm of intrapelvic lymph nodes; N39.498 Other specified urinary incontinence; M54.50 Low back pain, unspecified; M25.551 Pain in right hip; M25.552 Pain in left hip; Z79.818 Long term (current) use of other agents affecting estrogen receptors and estrogen levels; Z79.899 Other long term (current) drug therapy
CPT/HCPCS: 80053; 84153; 84403; 85025; 96402; 99214; J9217

== ENCOUNTER → 2022-01-23 13:17 | Outpatient (BNVA) | payer MEDICARE, OTHER, SELFPAY | PROVIDERS: PCP Family Medicine; Visit Provider Urology | DX: C61 Malignant neoplasm of prostate (principal); Z87.440 Personal history of urinary (tract) infections; N32.0 Bladder-neck obstruction; N99.89 Other postprocedural complications and disorders of genitourinary system; N39.3 Stress incontinence (female) (male); C77.5 Secondary and unspecified malignant neoplasm of intrapelvic lymph nodes | CPT/HCPCS: 51741; 51798; 52281; 81003; 99213 ==

== ENCOUNTER → 2022-01-29 07:22 | Outpatient (BNVA) | payer MEDICARE, OTHER, SELFPAY | PROVIDERS: PCP Family Medicine; Visit Provider Urology | DX: N32.0 Bladder-neck obstruction (principal); N99.89 Other postprocedural complications and disorders of genitourinary system; N39.3 Stress incontinence (female) (male); C61 Malignant neoplasm of prostate; C77.5 Secondary and unspecified malignant neoplasm of intrapelvic lymph nodes | CPT/HCPCS: 52000; 99213 ==

== ENCOUNTER → 2022-02-27 13:26 | Outpatient (BNVA) | payer MEDICARE, OTHER, SELFPAY | PROVIDERS: PCP Family Medicine; Visit Provider Urology | DX: N32.0 Bladder-neck obstruction (principal); N99.89 Other postprocedural complications and disorders of genitourinary system; N39.3 Stress incontinence (female) (male); C61 Malignant neoplasm of prostate; C77.5 Secondary and unspecified malignant neoplasm of intrapelvic lymph nodes | CPT/HCPCS: 51798; 81003; 99214 ==

== ENCOUNTER → 2022-03-27 12:10 | Outpatient (BNVA) | payer MEDICARE, OTHER, SELFPAY | PROVIDERS: PCP Family Medicine; Visit Provider Urology | DX: N32.0 Bladder-neck obstruction (principal); Z87.440 Personal history of urinary (tract) infections; N99.89 Other postprocedural complications and disorders of genitourinary system; N39.3 Stress incontinence (female) (male) | CPT/HCPCS: 81003; 99213 ==

== ENCOUNTER 2022-04-25 11:22 | Oncology outpatient (recurring) (ONCR) | payer MEDICARE, OTHER, SELFPAY ==
[2022-04-25 12:05] LABS: Basophils # 0.1 10^3/uL (0.0-0.1); Basophils % 0.9 %; Eosinophils # 0.3 10^3/uL (0.0-0.8); Eosinophils % 4.9 %; Hematocrit 40.8 % (42.0-52.0); Hemoglobin 13.4 g/dL (11.7-16.6); Lymphocytes # 0.6 10^3/uL (0.8-4.8); Lymphocytes % 8.1 %; Mean Corpuscular HGB Conc 32.8 g/dL (30.0-36.0); Mean Corpuscular Hemoglobin 29.7 pg (28.0-34.0); Mean Corpuscular Volume 90.5 fl (80-94); Mean Platelet Volume 10.3 fL (7.4-10.4); Monocytes # 0.8 10^3/uL (0.2-0.9); Monocytes % 10.8 %; Neutrophils # 5.18 10^3/uL (1.8-7.7); Neutrophils % 74.6 %; Nucleated Red Blood Cells % 0 %; Platelet Count 203 10^3/cmm (130-400); Red Blood Count 4.51 10^6/uL (4.1-5.3); Red Cell Distribution Width 12.9 % (12.1-15.1); White Blood Count 6.9 10^3/uL (4.0-10.0)
[2022-04-25 12:35] LABS: Alanine Aminotransferase 17 U/L (0-41); Albumin Level 4.1 g/dL (3.5-5.2); Alkaline Phosphatase 68 U/L (40-130); Anion Gap 17.6 (5-19); Aspartate Amino Transferase 17 U/L (0-40); Blood Urea Nitrogen 31 mg/dL (8-23); Calcium 9.3 mg/dL (8.5-10.5); Carbon Dioxide 24 mmol/L (22-29); Chloride 97 mmol/L (98-107); Globulin 2.5 g/dL (1.3-4.6); Glucose 321 mg/dL (65-115); Osmolality Calculated 297 mOsm/kg (285-295); Potassium 4.6 mmol/L (3.5-5.1); Sodium 134 mmol/L (136-145); Total Bilirubin 0.3 mg/dL (0.15-1.2); Total Protein 6.6 g/dL (6.6-8.7)
[2022-04-25 12:36] LABS: Prostate Specific Antigen < 0.014 ng/mL (0-4)
[2022-04-25] MEDS: leuprolide 22.5 mg Kit IM (13:34)
== END 2022-05-10 23:59 | disposition home or self-care (01) ==
PROVIDERS: PCP Family Medicine; Visit Provider Internal Medicine Medical Oncology
DX: C61 Malignant neoplasm of prostate (principal); C77.5 Secondary and unspecified malignant neoplasm of intrapelvic lymph nodes; Z79.818 Long term (current) use of other agents affecting estrogen receptors and estrogen levels; Z79.899 Other long term (current) drug therapy; N39.498 Other specified urinary incontinence; M54.50 Low back pain, unspecified; M25.551 Pain in right hip; M25.552 Pain in left hip
CPT/HCPCS: 36415; 80053; 84153; 85025; 96401; 99214; J9217

== ENCOUNTER → 2022-05-27 13:47 | Outpatient (BNVA) | payer MEDICARE, OTHER, SELFPAY | PROVIDERS: PCP Family Medicine; Visit Provider Urology | DX: N99.89 Other postprocedural complications and disorders of genitourinary system (principal) | CPT/HCPCS: 81003; 99213 ==

== ENCOUNTER 2022-07-23 11:24 | Oncology outpatient (recurring) (ONCR) | payer MEDICARE, OTHER, SELFPAY ==
[2022-07-23 12:08] VITALS: BP 111/69; PULSE 66; RESP 18; TEMP 35.9; O2SAT 95
[2022-07-23 12:24] LABS: Basophils # 0.1 10^3/uL (0.0-0.1); Basophils % 1.1 %; Eosinophils # 0.1 10^3/uL (0.0-0.8); Eosinophils % 2.6 %; Hematocrit 39.8 % (42.0-52.0); Hemoglobin 13.2 g/dL (11.7-16.6); Lymphocytes # 0.6 10^3/uL (0.8-4.8); Lymphocytes % 11.9 %; Mean Corpuscular HGB Conc 33.2 g/dL (30.0-36.0); Mean Corpuscular Hemoglobin 29.6 pg (28.0-34.0); Mean Corpuscular Volume 89.2 fl (80-94); Mean Platelet Volume 9.7 fL (7.4-10.4); Monocytes # 0.5 10^3/uL (0.2-0.9); Neutrophils # 3.97 10^3/uL (1.8-7.7); Neutrophils % 73.7 %; Nucleated Red Blood Cells % 0 %; Platelet Count 192 10^3/cmm (130-400); Red Blood Count 4.46 10^6/uL (4.1-5.3); Red Cell Distribution Width 13.5 % (12.1-15.1); White Blood Count 5.4 10^3/uL (4.0-10.0)
[2022-07-23 12:58] LABS: Alanine Aminotransferase 17 U/L (0-41); Albumin Level 4.2 g/dL (3.5-5.2); Alkaline Phosphatase 71 U/L (40-130); Anion Gap 15.7 (5-19); Aspartate Amino Transferase 14 U/L (0-40); Blood Urea Nitrogen 24 mg/dL (8-23); Calcium 9.4 mg/dL (8.5-10.5); Carbon Dioxide 25 mmol/L (22-29); Chloride 103 mmol/L (98-107); Globulin 2.5 g/dL (1.3-4.6); Glucose 166 mg/dL (65-115); Osmolality Calculated 296 mOsm/kg (285-295); Potassium 4.7 mmol/L (3.5-5.1); Sodium 139 mmol/L (136-145); Testosterone Total 2.5 ng/dL (193-740); Total Bilirubin 0.3 mg/dL (0.15-1.2); Total Protein 6.7 g/dL (6.6-8.7)
[2022-07-23 13:00] LABS: Prostate Specific Antigen < 0.014 ng/mL (0-4)
[2022-07-23] MEDS: leuprolide 22.5 mg Kit IM (13:54)
== END 2022-08-09 23:59 | disposition home or self-care (01) ==
PROVIDERS: Nurse Practitioner Family; PCP Family Medicine; Visit Provider Internal Medicine Medical Oncology
DX: C61 Malignant neoplasm of prostate (principal); C77.5 Secondary and unspecified malignant neoplasm of intrapelvic lymph nodes; N39.498 Other specified urinary incontinence; M54.50 Low back pain, unspecified; M25.551 Pain in right hip; M25.552 Pain in left hip; Z79.818 Long term (current) use of other agents affecting estrogen receptors and estrogen levels; Z79.899 Other long term (current) drug therapy
CPT/HCPCS: 96372; 80053; 84153; 84403; 85025; 96402; 99214; J9217

== ENCOUNTER 2022-10-30 11:02 | Oncology outpatient (recurring) (ONCR) | payer MEDICARE, OTHER, SELFPAY ==
[2022-10-30 11:33] VITALS: BP 120/71; PULSE 64; RESP 16; TEMP 36.3; O2SAT 94
[2022-10-30 11:50] LABS: Basophils # 0.1 10^3/uL (0.0-0.1); Basophils % 0.9 %; Eosinophils # 0.2 10^3/uL (0.0-0.8); Eosinophils % 3.4 %; Hematocrit 39.8 % (37-53); Lymphocytes # 0.6 10^3/uL (0.8-4.8); Mean Corpuscular HGB Conc 32.4 g/dL (30-55); Mean Corpuscular Volume 89.4 fl (82-101); Mean Platelet Volume 9.9 fL (7.4-10.4); Monocytes # 0.5 10^3/uL (0.2-0.9); Neutrophils # 4.42 10^3/uL (1.8-7.7); Neutrophils % 76.2 %; Nucleated Red Blood Cells % 0 %; Platelet Count 189 10^3/cmm (157-399); Red Blood Count 4.45 10^6/uL (3.85-5.65); Red Cell Distribution Width 13.7 % (12.1-15.1)
[2022-10-30 12:13] LABS: Alanine Aminotransferase 23 U/L (0-41); Albumin Level 4.2 g/dL (3.5-5.2); Alkaline Phosphatase 76 U/L (40-130); Anion Gap 15.2 (5-19); Aspartate Amino Transferase 15 U/L (0-40); Blood Urea Nitrogen 21 mg/dL (8-23); Calcium 9.5 mg/dL (8.5-10.5); Carbon Dioxide 26 mmol/L (22-29); Chloride 102 mmol/L (98-107); Globulin 2.4 g/dL (1.3-4.6); Glucose 323 mg/dL (65-115); Osmolality Calculated 303 mOsm/kg (285-295); Potassium 4.2 mmol/L (3.5-5.1); Sodium 139 mmol/L (136-145); Testosterone Total 2.5 ng/dL (193-740); Total Bilirubin 0.3 mg/dL (0.15-1.2); Total Protein 6.6 g/dL (6.6-8.7)
[2022-10-30 12:27] LABS: Prostate Specific Antigen < 0.014 ng/mL (0-4)
[2022-10-30] MEDS: leuprolide 22.5 mg Kit IM (13:15)
== END 2022-11-09 23:59 | disposition home or self-care (01) ==
PROVIDERS: PCP Family Medicine; Visit Provider Internal Medicine Medical Oncology
DX: C61 Malignant neoplasm of prostate (principal); C77.5 Secondary and unspecified malignant neoplasm of intrapelvic lymph nodes; R53.0 Neoplastic (malignant) related fatigue; Z51.11 Encounter for antineoplastic chemotherapy
CPT/HCPCS: 36591; 80053; 84153; 84403; 85025; 96402; 99213; J9217

== ENCOUNTER 2022-11-06 14:03 | Outpatient (RCR) | payer MEDICARE, OTHER, SELFPAY | END 2022-11-09 23:59 | disposition home or self-care (01) | LOC: SPT 14:03 | PROVIDERS: PCP Family Medicine; Visit Provider General Practice | DX: M48.062 Spinal stenosis, lumbar region with neurogenic claudication (principal); M48.061 Spinal stenosis, lumbar region without neurogenic claudication | CPT/HCPCS: 97110; 97161 ==

== ENCOUNTER 2022-11-10 06:00 | Outpatient (RCR) | payer MEDICARE, OTHER, SELFPAY | END 2022-12-09 23:59 | disposition home or self-care (01) | LOC: SPT 06:00 | PROVIDERS: PCP Family Medicine; Visit Provider General Practice | DX: M48.062 Spinal stenosis, lumbar region with neurogenic claudication (principal); M48.061 Spinal stenosis, lumbar region without neurogenic claudication; R26.9 Unspecified abnormalities of gait and mobility | CPT/HCPCS: 97110 ==

== ENCOUNTER 2023-01-29 13:25 | Oncology outpatient (recurring) (ONCR) | payer MEDICARE, OTHER, SELFPAY ==
[2023-01-29 13:34] VITALS: BP 100/61; PULSE 83; RESP 16; TEMP 36.1; O2SAT 98
[2023-01-29 13:48] LABS: Basophils # 0.1 10^3/uL (0.0-0.1); Basophils % 1.1 %; Eosinophils # 0.2 10^3/uL (0.0-0.8); Eosinophils % 2.8 %; Hematocrit 38.5 % (37-53); Lymphocytes # 0.8 10^3/uL (0.8-4.8); Lymphocytes % 13.9 %; Mean Corpuscular HGB Conc 33.2 g/dL (30-55); Mean Corpuscular Hemoglobin 29.2 pg (27-33); Mean Corpuscular Volume 87.9 fl (82-101); Mean Platelet Volume 9.8 fL (7.4-10.4); Monocytes # 0.6 10^3/uL (0.2-0.9); Monocytes % 10.4 %; Neutrophils # 4.07 10^3/uL (1.8-7.7); Neutrophils % 71.4 %; Nucleated Red Blood Cells % 0 %; Platelet Count 201 10^3/cmm (157-399); Red Blood Count 4.38 10^6/uL (3.85-5.65); Red Cell Distribution Width 13.2 % (12.1-15.1); White Blood Count 5.69 10^3/uL (3.29-11.43)
[2023-01-29 14:19] LABS: Alanine Aminotransferase 27 U/L (0-41); Albumin Level 4.1 g/dL (3.5-5.2); Alkaline Phosphatase 75 U/L (40-130); Aspartate Amino Transferase 21 U/L (0-40); Blood Urea Nitrogen 23 mg/dL (8-23); Calcium 9.7 mg/dL (8.5-10.5); Carbon Dioxide 28 mmol/L (22-29); Chloride 101 mmol/L (98-107); Globulin 2.3 g/dL (1.3-4.6); Glucose 232 mg/dL (65-115); Osmolality Calculated 295 mOsm/kg (285-295); Sodium 137 mmol/L (136-145); Testosterone Total 2.5 ng/dL (193-740); Total Bilirubin 0.3 mg/dL (0.15-1.2); Total Protein 6.4 g/dL (6.6-8.7)
[2023-01-29 14:20] LABS: Prostate Specific Antigen < 0.014 ng/mL (0-4)
[2023-01-29] MEDS: leuprolide 22.5 mg Kit IM (15:50)
== END 2023-02-09 23:59 | disposition home or self-care (01) ==
PROVIDERS: Nurse Practitioner Family; PCP Family Medicine; Visit Provider Internal Medicine Medical Oncology
DX: C61 Malignant neoplasm of prostate (principal); C77.5 Secondary and unspecified malignant neoplasm of intrapelvic lymph nodes; N39.498 Other specified urinary incontinence; M54.50 Low back pain, unspecified; M25.551 Pain in right hip; M25.552 Pain in left hip; Z79.818 Long term (current) use of other agents affecting estrogen receptors and estrogen levels; Z79.899 Other long term (current) drug therapy
CPT/HCPCS: 36415; 80053; 84153; 84403; 85025; 96402; 99214; J9217

== ENCOUNTER 2023-04-23 10:26 | Oncology outpatient (recurring) (ONCR) | payer MEDICARE, OTHER, SELFPAY ==
[2023-04-23 11:09] LABS: Basophils # 0.1 10^3/uL (0.0-0.1); Basophils % 1.1 %; Eosinophils # 0.2 10^3/uL (0.0-0.8); Eosinophils % 2.8 %; Hematocrit 39.6 % (37-53); Lymphocytes # 0.6 10^3/uL (0.8-4.8); Lymphocytes % 11.5 %; Mean Corpuscular HGB Conc 33.6 g/dL (30-55); Mean Corpuscular Hemoglobin 29.8 pg (27-33); Mean Corpuscular Volume 88.6 fl (82-101); Mean Platelet Volume 10.5 fL (7.4-10.4); Monocytes # 0.6 10^3/uL (0.2-0.9); Monocytes % 10.7 %; Neutrophils # 3.96 10^3/uL (1.8-7.7); Neutrophils % 73.2 %; Nucleated Red Blood Cells % 0 %; Platelet Count 177 10^3/cmm (157-399); Red Blood Count 4.47 10^6/uL (3.85-5.65); Red Cell Distribution Width 13.2 % (12.1-15.1); White Blood Count 5.41 10^3/uL (3.29-11.43)
[2023-04-23 11:45] LABS: Alanine Aminotransferase 29 U/L (0-41); Albumin Level 3.8 g/dL (3.5-5.2); Alkaline Phosphatase 85 U/L (40-130); Anion Gap 18.9 (5-19); Aspartate Amino Transferase 17 U/L (0-40); Blood Urea Nitrogen 32 mg/dL (8-23); Calcium 8.8 mg/dL (8.5-10.5); Carbon Dioxide 23 mmol/L (22-29); Chloride 95 mmol/L (98-107); Globulin 2.7 g/dL (1.3-4.6); Glucose 499 mg/dL (65-115); Osmolality Calculated 303 mOsm/kg (285-295); Potassium 4.9 mmol/L (3.5-5.1); Sodium 132 mmol/L (136-145); Testosterone Total 2.5 ng/dL (193-740); Total Bilirubin 0.3 mg/dL (0.15-1.2); Total Protein 6.5 g/dL (6.6-8.7)
[2023-04-23 11:46] LABS: Prostate Specific Antigen < 0.014 ng/mL (0-4)
[2023-04-23] MEDS: leuprolide 22.5 mg Kit IM (13:15)
== END 2023-05-11 23:59 | disposition home or self-care (01) ==
PROVIDERS: Nurse Practitioner Family; PCP Family Medicine; Visit Provider Internal Medicine Medical Oncology
DX: C61 Malignant neoplasm of prostate (principal); C77.5 Secondary and unspecified malignant neoplasm of intrapelvic lymph nodes; N39.498 Other specified urinary incontinence; M54.50 Low back pain, unspecified; M25.551 Pain in right hip; M25.552 Pain in left hip; Z79.818 Long term (current) use of other agents affecting estrogen receptors and estrogen levels; Z79.899 Other long term (current) drug therapy; Z53.9 Procedure and treatment not carried out, unspecified reason
CPT/HCPCS: 36415; 80053; 84153; 84403; 85025; 96402; 99214; J9217

== ENCOUNTER → 2023-06-11 08:18 | Outpatient (BNVA) | payer MEDICARE, OTHER, SELFPAY | PROVIDERS: PCP Family Medicine; Referring Provider Family Medicine; Visit Provider Internal Medicine | DX: E11.40 Type 2 diabetes mellitus with diabetic neuropathy, unspecified (principal); E78.5 Hyperlipidemia, unspecified; Z79.84 Long term (current) use of oral hypoglycemic drugs | CPT/HCPCS: 99204 ==

== ENCOUNTER 2023-07-17 09:33 | Oncology outpatient (recurring) (ONCR) | payer MEDICARE, OTHER, SELFPAY ==
[2023-07-17 10:13] LABS: Basophils # 0.1 10^3/uL (0.0-0.1); Basophils % 0.8 %; Eosinophils # 0.2 10^3/uL (0.0-0.8); Eosinophils % 3.4 %; Hematocrit 40.9 % (37-53); Lymphocytes # 0.8 10^3/uL (0.8-4.8); Lymphocytes % 13.9 %; Mean Corpuscular HGB Conc 32.3 g/dL (30-55); Mean Corpuscular Hemoglobin 28.8 pg (27-33); Mean Corpuscular Volume 89.1 fl (82-101); Mean Platelet Volume 10.4 fL (7.4-10.4); Monocytes # 0.6 10^3/uL (0.2-0.9); Monocytes % 10.6 %; Neutrophils # 4.21 10^3/uL (1.8-7.7); Neutrophils % 70.6 %; Nucleated Red Blood Cells % 0 %; Platelet Count 195 10^3/cmm (157-399); Red Blood Count 4.59 10^6/uL (3.85-5.65); Red Cell Distribution Width 13.1 % (12.1-15.1); White Blood Count 5.96 10^3/uL (3.29-11.43)
[2023-07-17 10:37] LABS: Alanine Aminotransferase 19 U/L (0-41); Alkaline Phosphatase 70 U/L (40-130); Anion Gap 16.6 (5-19); Aspartate Amino Transferase 21 U/L (0-40); Blood Urea Nitrogen 22 mg/dL (8-23); Calcium 9.2 mg/dL (8.5-10.5); Carbon Dioxide 24 mmol/L (22-29); Chloride 107 mmol/L (98-107); Globulin 2.7 g/dL (1.3-4.6); Glucose 175 mg/dL (65-115); Osmolality Calculated 304 mOsm/kg (285-295); Potassium 4.6 mmol/L (3.5-5.1); Sodium 143 mmol/L (136-145); Testosterone Total 2.5 ng/dL (193-740); Total Bilirubin 0.2 mg/dL (0.15-1.2); Total Protein 6.7 g/dL (6.6-8.7)
[2023-07-17 10:38] LABS: Prostate Specific Antigen < 0.014 ng/mL (0-4)
[2023-07-17 12:05] VITALS: BP 134/79; PULSE 66; RESP 16; TEMP 36.6; O2SAT 96
[2023-07-17] MEDS: leuprolide 22.5 mg Kit IM (12:15)
== END 2023-08-10 23:59 | disposition home or self-care (01) ==
PROVIDERS: PCP Family Medicine; Visit Provider Internal Medicine Medical Oncology
DX: C61 Malignant neoplasm of prostate (principal); C77.5 Secondary and unspecified malignant neoplasm of intrapelvic lymph nodes; N39.498 Other specified urinary incontinence; M54.50 Low back pain, unspecified; M25.551 Pain in right hip; M25.552 Pain in left hip; Z79.818 Long term (current) use of other agents affecting estrogen receptors and estrogen levels; Z79.899 Other long term (current) drug therapy; Z51.12 Encounter for antineoplastic immunotherapy; E11.9 Type 2 diabetes mellitus without complications; E78.5 Hyperlipidemia, unspecified; Z79.84 Long term (current) use of oral hypoglycemic drugs; Z79.4 Long term (current) use of insulin
CPT/HCPCS: 36415; 80053; 84153; 84403; 85025; 96402; 99213; 99214; J9217

== ENCOUNTER → 2023-07-29 14:00 | Outpatient (BNVA) | payer MEDICARE, OTHER, SELFPAY | PROVIDERS: PCP Family Medicine; Visit Provider Podiatrist Foot & Ankle Surgery | DX: L60.0 Ingrowing nail (principal); E11.9 Type 2 diabetes mellitus without complications; Z79.84 Long term (current) use of oral hypoglycemic drugs | CPT/HCPCS: 99203 ==

== ENCOUNTER → 2023-08-08 09:38 | Outpatient (BNVA) | payer MEDICARE, OTHER, SELFPAY | PROVIDERS: PCP Family Medicine; Visit Provider Podiatrist Foot & Ankle Surgery | DX: L60.0 Ingrowing nail (principal); E11.69 Type 2 diabetes mellitus with other specified complication; Z79.84 Long term (current) use of oral hypoglycemic drugs; Z79.4 Long term (current) use of insulin | CPT/HCPCS: 11721 ==

== ENCOUNTER → 2023-09-23 15:30 | Outpatient (BNVA) | payer MEDICARE, OTHER, SELFPAY | PROVIDERS: PCP Family Medicine; Visit Provider Podiatrist Foot & Ankle Surgery | DX: L60.0 Ingrowing nail (principal) | CPT/HCPCS: 99213 ==

== ENCOUNTER 2023-10-09 09:15 | Oncology outpatient (recurring) (ONCR) | payer MEDICARE, OTHER, SELFPAY ==
[2023-10-08 13:14] LABS: Basophils % 0.7 %; Eosinophils # 0.2 10^3/uL (0.0-0.8); Eosinophils % 3.8 %; Lymphocytes # 0.9 10^3/uL (0.8-4.8); Lymphocytes % 15.2 %; Mean Corpuscular HGB Conc 32.8 g/dL (30-55); Mean Corpuscular Hemoglobin 28.9 pg (27-33); Mean Corpuscular Volume 88.1 fl (82-101); Monocytes # 0.6 10^3/uL (0.2-0.9); Monocytes % 10.1 %; Neutrophils # 4.24 10^3/uL (1.8-7.7); Neutrophils % 69.9 %; Nucleated Red Blood Cells % 0 %; Platelet Count 183 10^3/cmm (157-399); Red Blood Count 4.54 10^6/uL (3.85-5.65); Red Cell Distribution Width 13.9 % (12.1-15.1); White Blood Count 6.06 10^3/uL (3.29-11.43)
[2023-10-08 13:46] LABS: Alanine Aminotransferase 18 U/L (0-41); Alkaline Phosphatase 73 U/L (40-130); Anion Gap 16.5 (5-19); Aspartate Amino Transferase 19 U/L (0-40); Blood Urea Nitrogen 19 mg/dL (8-23); Calcium 9.1 mg/dL (8.5-10.5); Carbon Dioxide 22 mmol/L (22-29); Chloride 108 mmol/L (98-107); Globulin 2.5 g/dL (1.3-4.6); Glucose 192 mg/dL (65-115); Osmolality Calculated 301 mOsm/kg (285-295); Potassium 4.5 mmol/L (3.5-5.1); Sodium 142 mmol/L (136-145); Testosterone Total 2.5 ng/dL (193-740); Total Bilirubin 0.3 mg/dL (0.15-1.2); Total Protein 6.5 g/dL (6.6-8.7)
[2023-10-08 13:57] LABS: Prostate Specific Antigen < 0.014 ng/mL (0-4)
[2023-10-09] MEDS: leuprolide 22.5 mg Kit IM (09:25)
[2023-10-09 09:32] VITALS: BP 143/80; PULSE 67; RESP 18; TEMP 36.1; O2SAT 95
== END 2023-10-11 23:59 | disposition home or self-care (01) ==
PROVIDERS: Nurse Practitioner Family; PCP Family Medicine; Visit Provider Internal Medicine Medical Oncology
DX: Z53.9 Procedure and treatment not carried out, unspecified reason; Z51.11 Encounter for antineoplastic chemotherapy; C61 Malignant neoplasm of prostate; C77.5 Secondary and unspecified malignant neoplasm of intrapelvic lymph nodes; Z79.818 Long term (current) use of other agents affecting estrogen receptors and estrogen levels
CPT/HCPCS: 36415; 80053; 84153; 84403; 85025; 96402; 99214; J9217

== ENCOUNTER → 2023-10-16 08:45 | Outpatient (BNVA) | payer MEDICARE, OTHER, SELFPAY | PROVIDERS: PCP Family Medicine; Visit Provider Internal Medicine | DX: E11.9 Type 2 diabetes mellitus without complications (principal); E78.5 Hyperlipidemia, unspecified; Z79.4 Long term (current) use of insulin; Z79.84 Long term (current) use of oral hypoglycemic drugs | CPT/HCPCS: 99214 ==

== ENCOUNTER → 2023-10-17 09:08 | Outpatient (BNVA) | payer MEDICARE, OTHER, SELFPAY | PROVIDERS: PCP Family Medicine; Visit Provider Podiatrist Foot & Ankle Surgery | DX: L60.0 Ingrowing nail (principal); L60.3 Nail dystrophy; I73.9 Peripheral vascular disease, unspecified; E11.69 Type 2 diabetes mellitus with other specified complication; Z79.84 Long term (current) use of oral hypoglycemic drugs; Z79.4 Long term (current) use of insulin | CPT/HCPCS: 11721 ==

== ENCOUNTER → 2023-10-19 18:28 | Outpatient (BNVA) | payer MEDICARE, OTHER, SELFPAY | PROVIDERS: PCP Family Medicine; Visit Provider Family Medicine | DX: R09.81 Nasal congestion (principal) | CPT/HCPCS: 87426 ==

== ENCOUNTER → 2023-12-22 15:25 | Outpatient (BNVA) | payer MEDICARE, OTHER, SELFPAY | PROVIDERS: PCP Family Medicine; Visit Provider Podiatrist Foot & Ankle Surgery | DX: L60.3 Nail dystrophy (principal); I73.9 Peripheral vascular disease, unspecified; E11.69 Type 2 diabetes mellitus with other specified complication; Z79.84 Long term (current) use of oral hypoglycemic drugs; Z79.4 Long term (current) use of insulin | CPT/HCPCS: 11721 ==

== ENCOUNTER 2024-01-01 12:26 | Oncology outpatient (recurring) (ONCR) | payer MEDICARE, OTHER, SELFPAY ==
[2024-01-01 12:50] LABS: Basophils # 0.1 10^3/uL (0.0-0.1); Basophils % 0.7 %; Eosinophils # 0.2 10^3/uL (0.0-0.8); Hematocrit 40.9 % (37-53); Lymphocytes # 1.2 10^3/uL (0.8-4.8); Lymphocytes % 15.8 %; Mean Corpuscular HGB Conc 32.3 g/dL (30-55); Mean Corpuscular Hemoglobin 28.7 pg (27-33); Mean Corpuscular Volume 88.9 fl (82-101); Mean Platelet Volume 9.7 fL (7.4-10.4); Monocytes # 0.9 10^3/uL (0.2-0.9); Monocytes % 11.3 %; Neutrophils # 5.23 10^3/uL (1.8-7.7); Neutrophils % 68.8 %; Nucleated Red Blood Cells % 0 %; Platelet Count 223 10^3/cmm (157-399); Red Cell Distribution Width 13.2 % (12.1-15.1)
[2024-01-01 13:25] LABS: Alanine Aminotransferase 19 U/L (0-41); Albumin Level 4.2 g/dL (3.5-5.2); Alkaline Phosphatase 86 U/L (40-130); Anion Gap 15.7 (5-19); Aspartate Amino Transferase 15 U/L (0-40); Blood Urea Nitrogen 16 mg/dL (8-23); Calcium 9.3 mg/dL (8.5-10.5); Carbon Dioxide 25 mmol/L (22-29); Chloride 105 mmol/L (98-107); Creatinine Clr Calc Pharmacy 99.8369; Globulin 2.9 g/dL (1.3-4.6); Glucose 109 mg/dL (65-115); Osmolality Calculated 294 mOsm/kg (285-295); Potassium 4.7 mmol/L (3.5-5.1); Sodium 141 mmol/L (136-145); Testosterone Total 5.1 ng/dL (193-740); Total Bilirubin 0.3 mg/dL (0.15-1.2); Total Protein 7.1 g/dL (6.6-8.7)
[2024-01-01 13:26] LABS: Prostate Specific Antigen < 0.014 ng/mL (0-4)
[2024-01-01] MEDS: leuprolide 22.5 mg Kit IM (14:45)
== END 2024-01-10 23:59 | disposition home or self-care (01) ==
PROVIDERS: Nurse Practitioner Family; PCP Family Medicine; Visit Provider Internal Medicine Medical Oncology
DX: C61 Malignant neoplasm of prostate; C77.5 Secondary and unspecified malignant neoplasm of intrapelvic lymph nodes; Z79.818 Long term (current) use of other agents affecting estrogen receptors and estrogen levels; Z79.899 Other long term (current) drug therapy; Z51.11 Encounter for antineoplastic chemotherapy
CPT/HCPCS: 36415; 80053; 84153; 84403; 85025; 96402; 99214; J9217

== ENCOUNTER 2024-02-20 12:00 | Oncology outpatient (recurring) (ONCR) | payer MEDICARE, OTHER, SELFPAY ==
--- NOTE | 2024-02-20 12:00 | US_ITS ---
WS: [id number] TESTICULAR ULTRASOUND HISTORY: left testicle lump COMPARISON: None available. TECHNIQUE: Real-time and color Doppler imaging or utilized to perform a testicular ultrasound. Right testicle: 2.9 cm x 2.2 cm x 1.1 cm. Smaller caliber RIGHT testicle. No mass or increased vascularity. Normal color Doppler is present throughout. Systolic and diastolic velocities are both present. No significant hydrocele. Right epididymis: Normal epididymis with no increased vascularity. Left testicle: 4.1 cm x 2.5 cm x 1.9 cm. Normal size and echogenicity. No mass or torsion. Normal color Doppler is present throughout. Systolic and diastolic velocities are both present. No significant hydrocele. Left epididymis: Small spermatocele measuring 0.7 x 0.7 x 0.4 cm. US/US scrotum [id number] IMPRESSION: 1. No testicular mass or torsion. 2. Stable mild atrophy RIGHT testicle. 3. Palpable area LEFT scrotum corresponds to a small spermatocele.
== END 2024-03-12 23:59 | disposition home or self-care (01) ==
LOC: RAD 02-21 00:01 → ONCMED 02-23 09:26
PROVIDERS: PCP Family Medicine; Visit Provider Internal Medicine Medical Oncology
DX: Z51.12 Encounter for antineoplastic immunotherapy (principal); C61 Malignant neoplasm of prostate; C77.5 Secondary and unspecified malignant neoplasm of intrapelvic lymph nodes; N39.498 Other specified urinary incontinence; M54.50 Low back pain, unspecified; M25.551 Pain in right hip; M25.552 Pain in left hip; Z79.818 Long term (current) use of other agents affecting estrogen receptors and estrogen levels; Z79.899 Other long term (current) drug therapy; E11.9 Type 2 diabetes mellitus without complications; E78.5 Hyperlipidemia, unspecified; Z79.84 Long term (current) use of oral hypoglycemic drugs; Z79.4 Long term (current) use of insulin
CPT/HCPCS: 76870; 99214

== ENCOUNTER → 2024-03-23 07:44 | Outpatient (BNVA) | payer MEDICARE, OTHER, SELFPAY | PROVIDERS: PCP Family Medicine; Visit Provider Podiatrist Foot & Ankle Surgery | DX: E11.69 Type 2 diabetes mellitus with other specified complication (principal); L60.3 Nail dystrophy; I73.9 Peripheral vascular disease, unspecified; Z79.84 Long term (current) use of oral hypoglycemic drugs; Z79.4 Long term (current) use of insulin | CPT/HCPCS: 11721 ==

== ENCOUNTER 2024-03-25 11:42 | Oncology outpatient (recurring) (ONCR) | payer MEDICARE, OTHER, SELFPAY ==
[2024-03-25 13:01] LABS: Basophils # 0.1 10^3/uL (0.0-0.1); Basophils % 0.9 %; Eosinophils # 0.3 10^3/uL (0.0-0.8); Eosinophils % 4.6 %; Hematocrit 38.5 % (37-53); Lymphocytes # 0.9 10^3/uL (0.8-4.8); Lymphocytes % 13.5 %; Mean Corpuscular HGB Conc 32.5 g/dL (30-55); Mean Corpuscular Hemoglobin 28.2 pg (27-33); Mean Corpuscular Volume 86.9 fl (82-101); Mean Platelet Volume 9.8 fL (7.4-10.4); Monocytes # 0.7 10^3/uL (0.2-0.9); Monocytes % 10.1 %; Neutrophils % 70.5 %; Nucleated Red Blood Cells % 0 %; Platelet Count 216 10^3/cmm (157-399); Red Blood Count 4.43 10^6/uL (3.85-5.65); Red Cell Distribution Width 13.5 % (12.1-15.1); White Blood Count 6.95 10^3/uL (3.29-11.43)
[2024-03-25] MEDS: leuprolide 22.5 mg Kit IM (13:36)
[2024-03-25 13:39] LABS: Alkaline Phosphatase 90 U/L (40-130); Anion Gap 16.7 (5-19); Aspartate Amino Transferase 17 U/L (0-40); Blood Urea Nitrogen 21 mg/dL (8-23); Calcium 9.3 mg/dL (8.5-10.5); Carbon Dioxide 25 mmol/L (22-29); Chloride 103 mmol/L (98-107); Creatinine Clr Calc Pharmacy 88.6319; Globulin 2.7 g/dL (1.3-4.6); Glucose 182 mg/dL (65-115); Osmolality Calculated 298 mOsm/kg (285-295); Potassium 4.7 mmol/L (3.5-5.1); Sodium 140 mmol/L (136-145); Total Bilirubin 0.3 mg/dL (0.15-1.2); Total Protein 6.7 g/dL (6.6-8.7)
[2024-03-25 13:49] LABS: Prostate Specific Antigen < 0.014 ng/mL (0-4); Testosterone Total < 2.5 ng/dL (193-740)
[2024-03-25 13:50] LABS: Alanine Aminotransferase 17 U/L (0-41)
== END 2024-04-09 23:59 | disposition home or self-care (01) ==
PROVIDERS: Nurse Practitioner Family; PCP Family Medicine; Visit Provider Internal Medicine
DX: Z51.11 Encounter for antineoplastic chemotherapy (principal); C61 Malignant neoplasm of prostate; C77.5 Secondary and unspecified malignant neoplasm of intrapelvic lymph nodes; N43.41 Spermatocele of epididymis, single; Z79.818 Long term (current) use of other agents affecting estrogen receptors and estrogen levels; Z92.3 Personal history of irradiation; Z90.79 Acquired absence of other genital organ(s)
CPT/HCPCS: 80053; 84153; 84403; 85025; 96402; 99213; J9217

== ENCOUNTER 2024-04-12 08:00 | Outpatient (CLI) | payer MEDICARE, OTHER, SELFPAY ==
[2024-04-12 08:50] LABS: Estmated Average Glucose 183
[2024-04-12 08:52] LABS: Alanine Aminotransferase 14 U/L (0-41); Alkaline Phosphatase 83 U/L (40-130); Anion Gap 14.2 (5-19); Aspartate Amino Transferase 13 U/L (0-40); Blood Urea Nitrogen 14 mg/dL (8-23); Calcium 8.7 mg/dL (8.5-10.5); Carbon Dioxide 23 mmol/L (22-29); Chloride 107 mmol/L (98-107); Chol HDL Ratio 3.31 mg/dL (1.0-5.00); Cholesterol 129 mg/dL (0-200); Globulin 2.3 g/dL (1.3-4.6); Glucose 197 mg/dL (65-115); HDL Cholesterol 39 mg/dL (60-100); LDL Cholesterol Calculated 61 mg/dL (50-129); LDL HDL Ratio 1.56 RATIO (0.00-3.22); Osmolality Calculated 296 mOsm/kg (285-295); Potassium 4.2 mmol/L (3.5-5.1); Sodium 140 mmol/L (136-145); Total Bilirubin 0.3 mg/dL (0.15-1.2); Total Protein 6.3 g/dL (6.6-8.7); Triglycerides 144 mg/dL (0-150)
== END 2024-04-12 08:01 | disposition home or self-care (01) ==
LOC: LAB 08:02
PROVIDERS: PCP Family Medicine; Visit Provider Internal Medicine
DX: E11.9 Type 2 diabetes mellitus without complications (principal); E78.5 Hyperlipidemia, unspecified
CPT/HCPCS: 36415; 80053; 80061; 83036

== ENCOUNTER 2024-04-13 07:36 | Outpatient (CLI) | payer MEDICARE, OTHER, SELFPAY ==
[2024-04-13 08:06] LABS: Creatinine Urine, Random 95 mg/dL (39-259); Microalbumin Random Urine 5 ug/dL (0-20)
[2024-04-13 08:07] LABS: Microalbum Creatinine Ratio Ur 53 mg/dL (0-20)
== END 2024-04-13 07:37 | disposition home or self-care (01) ==
LOC: LAB 07:37
PROVIDERS: PCP Family Medicine; Visit Provider Internal Medicine
DX: E11.9 Type 2 diabetes mellitus without complications (principal); E78.5 Hyperlipidemia, unspecified
CPT/HCPCS: 82044

== ENCOUNTER → 2024-04-14 08:35 | Outpatient (BNVA) | payer MEDICARE, OTHER, SELFPAY | PROVIDERS: PCP Family Medicine; Visit Provider Internal Medicine | DX: E11.9 Type 2 diabetes mellitus without complications (principal); E78.5 Hyperlipidemia, unspecified | CPT/HCPCS: 99214 ==

== ENCOUNTER → 2024-04-15 09:56 | Outpatient (BNVA) | payer MEDICARE, OTHER, SELFPAY | PROVIDERS: PCP Family Medicine; Visit Provider Orthopaedic Surgery | DX: G56.01 Carpal tunnel syndrome, right upper limb (principal) | CPT/HCPCS: 73130; 99204 ==

== ENCOUNTER → 2024-05-11 13:03 | Outpatient (BNVA) | payer MEDICARE, OTHER, SELFPAY | PROVIDERS: PCP Family Medicine; Referring Provider Orthopaedic Surgery; Visit Provider Psychiatry & Neurology Neurology | DX: G56.03 Carpal tunnel syndrome, bilateral upper limbs (principal) | CPT/HCPCS: 95913 ==

== ENCOUNTER → 2024-05-17 11:11 | Outpatient (BNVA) | payer MEDICARE, OTHER, SELFPAY | PROVIDERS: PCP Family Medicine; Visit Provider Orthopaedic Surgery | DX: G56.03 Carpal tunnel syndrome, bilateral upper limbs (principal); Z09 Encounter for follow-up examination after completed treatment for conditions other than malignant neoplasm; E11.9 Type 2 diabetes mellitus without complications | CPT/HCPCS: 99213 ==

== ENCOUNTER → 2024-06-08 08:53 | Outpatient (BNVA) | payer MEDICARE, OTHER, SELFPAY | PROVIDERS: PCP Family Medicine; Visit Provider Family Medicine | DX: Z01.818 Encounter for other preprocedural examination (principal); I44.0 Atrioventricular block, first degree | CPT/HCPCS: 93005 ==

== ENCOUNTER 2024-06-16 07:35 | Day surgery (SDC) | payer MEDICARE, OTHER, SELFPAY ==
[2024-06-16] VITALS (7 sets, daily range): BP systolic 120–137; BP diastolic 63–101; PULSE 72–83; RESP 16–20; TEMP 36.1–36.4; O2SAT 93–96; BMI 29.1
[2024-06-16 08:06] LABS: Glucose Point of Care 187 mg/dL (70-110)
[2024-06-16] MEDS: sodium chloride 0.9% 1,000 ML 30 ML IV (08:08)
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
--- NOTE | 2024-06-16 09:21 | W.PM.OPSUD ---
Surgery/Procedure H&P Update DATE OF PROCEDURE: June 16, 2024 DATE H&P PERFORMED: 06/08/24 H&P UPDATE INFORMATION: I have reviewed H&P completed within last 30 days, I have examined patient prior to procedure, No changes to prior documentation and Risks and benefits of the procedure reviewed PREOP DIAGNOSIS: Carpal tunnel syndrome PLANNED PROCEDURE: Operation Date: 06/16/24 09:10 Proposed Procedures p Carpal Tunnel Release(Right) - Roberto Chopra MD
[2024-06-16] MEDS: ceFAZolin 2,000 mg SDV 2000 MG IVP (09:41)
[2024-06-16] MEDS: ROPivacaine 0.5% SDV 30 mL 150 MG INJECTION (10:05)
[2024-06-16] MEDS: lidocaine-epi 1% 20 mL INJ INJECTION (10:05)
--- NOTE | 2024-06-16 10:18 | PM.OP ---
Operative Report Date of procedure: June 16, 2024 Surgeon: Roberto Chopra MD Procedure: Preoperative diagnosis: Right carpal tunnel syndrome Postoperative diagnosis: Same Procedure: Right carpal tunnel release Surgeon: Roberto Chopra MD Anesthesia: IV sedation with local anesthetic EBL: None Indications: Brock is a 73-year-old white male was presented to the orthopedic clinics with EMG studies demonstrating carpal tunnel syndrome of the right hand. Clinical exam is consistent with this also. Therefore with positive electrical studies and clinical exam patient was offered a carpal tunnel release. All risk benefits treatment alternatives discussed and patient is agreeable to this at this time. Procedure: After obtaining her consent patient taken the operating placed table supine position and IV sedation was administered. Right arm was prepped and draped usual fashion. After surgical timeout hand was exsanguinated with an Esmarch wrap and Esmarch wrap was used as a tourniquet at mid forearm. Half percent Marcaine was injected about the surgical site for anesthetic effect. Longitudinal incision was made on the palmar surface extending from the distal flexion crease of the wrist distally just ulnar to the mid palmar crease. Sharp dissecting on down subcutaneous tissues. Sharp dissection taken all the way down to the transverse carpal ligament. Transverse carpal ligament is divided along the course of the skin incision. Once is open Metzenbaum scissors were used in a blunt and sharp fashion to extend the release of the carpal tunnel ligament proximally and distally. Once good decompression been achieved wound was closed with 3-0 nylon horizontal mattress suture. Wounds were cleaned and dried dressed Xeroform gauze, sterile gauze dressing, Kerlix wrap, Robin wrap for compression. Patient awakened transferred to cover room stable condition
--- NOTE | 2024-06-16 11:07 | ANE.PACU2 ---
Inpatient post-anesthesia follow up: Airway intact: Yes Vital signs: Temperature 97.2 F Pulse Rate 75 Respiratory Rate 16 Blood Pressure 126/84 Pulse Oximetry 95 Oxygen Delivery Me thod Room Air Oxygen Flow Rate Fraction of Inspir ed Oxygen Hydration adequate: Yes Nausea and vomiting: No Pain level: 1 Mental status: Baseline
== END 2024-06-16 11:07 | disposition home or self-care (01) ==
PROVIDERS: PCP Family Medicine; Visit Provider Orthopaedic Surgery
PROC: (CPT 64721; principal; 2024-06-16 09:10)
DX: G56.03 Carpal tunnel syndrome, bilateral upper limbs (principal); G56.22 Lesion of ulnar nerve, left upper limb; I10 Essential (primary) hypertension; K21.9 Gastro-esophageal reflux disease without esophagitis; E11.9 Type 2 diabetes mellitus without complications; Z79.899 Other long term (current) drug therapy; Z79.4 Long term (current) use of insulin; Z79.84 Long term (current) use of oral hypoglycemic drugs; Z79.85 Long-term (current) use of injectable non-insulin antidiabetic drugs
CPT/HCPCS: 64721; 36416; 82962; J0690; J2250; J2704; J2795; J3010; J7030; J9999

== ENCOUNTER → 2024-06-22 08:18 | Outpatient (BNVA) | payer MEDICARE, OTHER, SELFPAY | PROVIDERS: PCP Family Medicine; Visit Provider Podiatrist Foot & Ankle Surgery | DX: E11.69 Type 2 diabetes mellitus with other specified complication (principal); L60.3 Nail dystrophy; I73.9 Peripheral vascular disease, unspecified; Z79.84 Long term (current) use of oral hypoglycemic drugs | CPT/HCPCS: 11721 ==

== ENCOUNTER → 2024-06-25 09:10 | Outpatient (BNVA) | payer MEDICARE, OTHER, SELFPAY | PROVIDERS: PCP Family Medicine; Visit Provider Nurse Practitioner | DX: Z98.890 Other specified postprocedural states (principal) | CPT/HCPCS: 99024 ==

== ENCOUNTER 2024-07-08 11:08 | Oncology outpatient (recurring) (ONCR) | payer MEDICARE, OTHER, SELFPAY ==
[2024-07-08 11:52] LABS: Basophils # 0.1 10^3/uL (0.0-0.1); Basophils % 0.8 %; Eosinophils # 0.2 10^3/uL (0.0-0.8); Eosinophils % 3.4 %; Hematocrit 38.7 % (37-53); Lymphocytes % 15.3 %; Mean Corpuscular HGB Conc 31.8 g/dL (30-55); Mean Corpuscular Hemoglobin 28.2 pg (27-33); Mean Corpuscular Volume 88.8 fl (82-101); Mean Platelet Volume 10.7 fL (7.4-10.4); Monocytes # 0.7 10^3/uL (0.2-0.9); Monocytes % 10.5 %; Neutrophils # 4.31 10^3/uL (1.8-7.7); Neutrophils % 69.7 %; Nucleated Red Blood Cells % 0 %; Platelet Count 199 10^3/cmm (157-399); Red Blood Count 4.36 10^6/uL (3.85-5.65); Red Cell Distribution Width 13.7 % (12.1-15.1); White Blood Count 6.19 10^3/uL (3.29-11.43)
[2024-07-08 12:21] LABS: Estmated Average Glucose 194; Hemoglobin A1C 8.4 % (4.0-6.0)
[2024-07-08 12:31] LABS: Alanine Aminotransferase 17 U/L (0-41); Alkaline Phosphatase 75 U/L (40-130); Anion Gap 17.7 (5-19); Aspartate Amino Transferase 16 U/L (0-40); Blood Urea Nitrogen 23 mg/dL (8-23); Calcium 9.2 mg/dL (8.5-10.5); Carbon Dioxide 22 mmol/L (22-29); Chloride 104 mmol/L (98-107); Creatinine Clr Calc Pharmacy 87.7079; Globulin 2.5 g/dL (1.3-4.6); Glucose 194 mg/dL (65-115); Lactate Dehydrogenase 154 U/L (135-225); Osmolality Calculated 297 mOsm/kg (285-295); Potassium 4.7 mmol/L (3.5-5.1); Sodium 139 mmol/L (136-145); Total Bilirubin 0.3 mg/dL (0.15-1.2); Total Protein 6.5 g/dL (6.6-8.7)
[2024-07-08 12:32] LABS: Prostate Specific Antigen < 0.014 ng/mL (0-4); Testosterone Total < 2.5 ng/dL (193-740)
[2024-07-08] MEDS: leuprolide 22.5 mg Kit IM (12:35)
== END 2024-07-10 23:59 | disposition home or self-care (01) ==
PROVIDERS: Internal Medicine; PCP Family Medicine; Visit Provider Internal Medicine
DX: Z51.11 Encounter for antineoplastic chemotherapy (principal); C61 Malignant neoplasm of prostate; C77.5 Secondary and unspecified malignant neoplasm of intrapelvic lymph nodes; R32 Unspecified urinary incontinence; N43.41 Spermatocele of epididymis, single; Z90.79 Acquired absence of other genital organ(s); Z79.818 Long term (current) use of other agents affecting estrogen receptors and estrogen levels
CPT/HCPCS: 36415; 80053; 83036; 83615; 84153; 84403; 85025; 96402; 99213; J9217

== ENCOUNTER 2024-07-09 06:54 | Outpatient (CLI) | payer MEDICARE, OTHER, SELFPAY ==
[2024-07-09 09:16] LABS: Creatinine Urine, Random 101 mg/dL (39-259); Microalbum Creatinine Ratio Ur 30 mg/dL (0-20); Microalbumin Random Urine 3 ug/dL (0-20)
== END 2024-07-09 06:55 | disposition home or self-care (01) ==
PROVIDERS: PCP Family Medicine; Visit Provider Internal Medicine
DX: E11.9 Type 2 diabetes mellitus without complications (principal); E78.5 Hyperlipidemia, unspecified
CPT/HCPCS: 82044

== ENCOUNTER 2024-07-14 09:36 | Outpatient (RCR) | payer MEDICARE, OTHER, SELFPAY | END 2024-08-09 23:59 | disposition home or self-care (01) | LOC: SPT 09:36 | PROVIDERS: PCP Family Medicine; Visit Provider General Practice | DX: M75.51 Bursitis of right shoulder (principal); E11.9 Type 2 diabetes mellitus without complications; E78.5 Hyperlipidemia, unspecified | CPT/HCPCS: 97110; 97161; 99214 ==

== ENCOUNTER → 2024-08-24 08:17 | Outpatient (BNVA) | payer MEDICARE, OTHER, SELFPAY | PROVIDERS: PCP Family Medicine; Visit Provider Podiatrist Foot & Ankle Surgery | DX: E11.69 Type 2 diabetes mellitus with other specified complication (principal); L60.3 Nail dystrophy; E11.8 Type 2 diabetes mellitus with unspecified complications; I73.9 Peripheral vascular disease, unspecified; Z79.84 Long term (current) use of oral hypoglycemic drugs; Z79.4 Long term (current) use of insulin | CPT/HCPCS: 11721 ==

== ENCOUNTER → 2024-08-31 13:27 | Outpatient (BNVA) | payer MEDICARE, OTHER, SELFPAY | PROVIDERS: PCP Family Medicine; Visit Provider Internal Medicine Cardiovascular Disease | DX: R00.2 Palpitations (principal); I47.10 Supraventricular tachycardia, unspecified; E78.5 Hyperlipidemia, unspecified; I44.7 Left bundle-branch block, unspecified; I49.3 Ventricular premature depolarization; I73.9 Peripheral vascular disease, unspecified; I10 Essential (primary) hypertension; E11.9 Type 2 diabetes mellitus without complications; Z79.84 Long term (current) use of oral hypoglycemic drugs; Z79.85 Long-term (current) use of injectable non-insulin antidiabetic drugs; I35.0 Nonrheumatic aortic (valve) stenosis; R07.9 Chest pain, unspecified; M79.604 Pain in right leg; M79.605 Pain in left leg | CPT/HCPCS: 99204 ==

== ENCOUNTER 2024-09-27 08:07 | Outpatient (CLI) | payer MEDICARE, OTHER, SELFPAY ==
--- NOTE | 2024-09-27 | ECG_ITS ---
[facility] Test Date: 2024-09-27 Pat Name: Brock Bustillos Department: Room: Gender: Male In File Operator: : 1950 Requested By: Noel Delvalle Order Number: [id number] Reading MD: NOEL DELVALLE Interpretive Statements Lung unchanged pre/post procedure; Intraprocedure shortess of breath; Symptoms resoled by discharge NOTE: Please note that this is the electrocardiogram portion of the Lexiscan/Sestamibi stress test. The perfusion scan will be documented separately. DATA: Baseline heart rate was 72 beats per minute. Baseline blood pressure was 127/73 millimeters of mercury. Target heart rate was 145. Maximum heart rate achieved was 94. which was 64 % of the predicted target heart rate. Maximum blood pressure was 136/93 millimeters of mercury. The reason for ending the test was completion of the protocol. The patient did not experience any symptoms. ELECTROCARDIOGRAM: BASELINE: Sinus rhythm. Left axis. Left bundle branch block, PVCs After Lexiscan injection, no ST-T changes suggestive of ischemic noted. No arrhythmia noted. CONCLUSION: Please note due to baseline abnormality of the EKG specificity and sensitivity of the EKG portion of LexiScan MIBI stress test will be low 1. EKG not suggestive of ischemia 2. Lexiscan injection unremarkable. 3. Perfusion scan will be documented separately. Electronically Signed On 10-23-2024 14:27:43 CDT by NOEL DELVALLE [email or web address]
[2024-09-27 08:38] VITALS: BMI 29.1
--- NOTE | 2024-09-27 08:39 | NMCV_ITS ---
NM teresa perf SPECT r/s* [id number] Brock Bustillos Age: 74 Gender: M : 1950 Exam Date: 09/27/2024 09:14 Ordering Phys: Noel Delvalle MD ([email or web address]) Technologist: MATT Lou Exam Location: [facility] Indications: CP STRESS TEST [facility] IMAGE PROTOCOL Rest/Stress 1 Day Radiopharmaceutical Dose (mCi) Administration Site Administered by Rest: Tc-99m 10.7 IV MATT Lou Sestamibi Stress:Tc-99m 32.8 IV MATT Lou Sestamibi Rest: 27-Sep-2024 60 Discovery 630 Stress: 27-Sep-2024 30 Discovery 630 0.4mg Lexiscan. Images obtained in supine and prone position. SPECT RESULTS Technical Quality: Good Raw Data Analysis: Normal Image Corrections: No attenuation or motion correction applied Summed Stress Score: 8 Summed Rest Score: 16 Summed Difference Score: 0 PERFUSION FINDINGS There is basal to distal moderate to large fixed perfusion defect noted in the anteroseptal region suggestive of old myocardial infarction without ischemia. There is basal to distal inferior wall moderate size fixed perfusion defect suggestive of old myocardial infarction without periinfarct ischemia FUNCTIONAL RESULTS (calculated via Gated SPECT) Stress Image LV EF (%): 20 Stress EDV (mL):204 TID: 0.97 Stress ESV (mL):163 FUNCTIONAL FINDINGS: There is severely reduced left ventricular global systolic function. IMPRESSIONS There is basal to distal moderate to large fixed perfusion defect noted in the anteroseptal region suggestive of old myocardial infarction without ischemia. There is basal to distal inferior wall moderate size fixed perfusion defect suggestive of old myocardial infarction without periinfarct ischemia This study is negative for ischemia. Noel Delvalle MD (Electronically Signed) Final Date: 14 October 2024 10:04 S
--- NOTE | 2024-09-27 09:46 | PC.NURSE ---
Pre-stress test EKG/Physician notification Patient placed on EKG, pt SR with LBBB and occasional PVC. Dr. Delvalle notified and received verbal orders to switch patient to chemical stress test due to LBBB. Patient updated on change and agrees with plan.
[2024-09-27 10:01] VITALS: BP 131/64; PULSE 81
== END 2024-09-27 08:08 | disposition home or self-care (01) ==
LOC: CDL 08:09
PROVIDERS: PCP Family Medicine; Visit Provider Internal Medicine Cardiovascular Disease
DX: R07.9 Chest pain, unspecified (principal); R93.1 Abnormal findings on diagnostic imaging of heart and coronary circulation
CPT/HCPCS: 36415; 78452; 93017; 96374; A9500; J2785

== ENCOUNTER 2024-10-07 08:00 | Oncology outpatient (recurring) (ONCR) | payer MEDICARE, OTHER, SELFPAY ==
--- NOTE | 2024-09-24 10:00 | USR_ITS ---
PROCEDURE INFORMATION: Exam: US Duplex Bilateral Lower Extremity Arteries Exam date and time: 09/24/2024 8:32 AM Age: 74 years old Clinical indication: Pain; Leg, lower; Bilateral; Additional info: Bilat leg pain TECHNIQUE: Imaging protocol: Real-time ultrasound scan of the arteries of the bilateral lower extremities with 2-D reddy scale, color Doppler flow and spectral waveform analysis. Images documented and saved. COMPARISON: US scrotum [id number] 02/20/2024 11:40 AM FINDINGS: Right common femoral artery: No occlusion. Triphasic waveform. Peak systolic velocity 66 cm/second. JUVE: noncompressible. Right superficial femoral artery: No occlusion. Triphasic waveform (proximal PSV 87 cm/second, mid 92 cm/second, distal 85 cm/second). Right popliteal artery: No occlusion. Triphasic waveform. Peak systolic velocity 59 cm/second. Right calf/foot arteries: No occlusion in the visualized arteries. Biphasic waveform in the posterior tibial artery (PSV 77 cm/second). Monophasic waveform in the dorsalis pedis artery (PSV 10 cm/second). Left common femoral artery: No occlusion. Peak systolic velocity 77 cm/second. JUVE: 1.09. Left superficial femoral artery: No occlusion. Triphasic waveform (proximal PSV 102 cm/second, mid 94 cm/second, distal 110 cm/second). Left popliteal artery: No occlusion. Triphasic waveform. Peak systolic velocity 63 cm/second. Left calf/foot arteries: No occlusion in the visualized arteries. Triphasic waveform in the posterior tibial artery (PSV 99 cm/second) and dorsalis pedis artery (PSV 42 cm/second). US/CV arterial duplex [facility] [id number] IMPRESSION: 1. No evidence of occlusion in the visualized arteries of either lower extremity. 2. Predominantly triphasic waveforms bilaterally, with isolated distal waveform abnormalities in the right calf/foot arteries (biphasic posterior tibial artery and monophasic dorsalis pedis artery). 3. Right JUVE noncompressible. Left JUVE within normal range at 1.09.
[2024-10-06 14:09] LABS: Hematocrit 37.8 % (37-53); Hemoglobin 12.70 g/dL (11.27-16.99); Mean Corpuscular HGB Conc 33.6 g/dL (30-55); Mean Corpuscular Hemoglobin 28.8 pg (27-33); Mean Corpuscular Volume 85.7 fl (82-101); Nucleated Red Blood Cells % 0 %; Platelet Count 188 10^3/cmm (157-399); Red Blood Count 4.41 10^6/uL (3.85-5.65); White Blood Count 6.56 10^3/uL (3.29-11.43)
[2024-10-06 14:31] LABS: Alanine Aminotransferase 22 U/L (0-41); Albumin Level 4.2 g/dL (3.5-5.2); Alkaline Phosphatase 77 U/L (40-130); Anion Gap 17.4 (5-19); Aspartate Amino Transferase 16 U/L (0-40); Blood Urea Nitrogen 29 mg/dL (8-23); Calcium 9.5 mg/dL (8.5-10.5); Carbon Dioxide 22 mmol/L (22-29); Chloride 103 mmol/L (98-107); Cholesterol 156 mg/dL (0-200); Creatinine Clr Calc Pharmacy 77.7411; Globulin 2.7 g/dL (1.3-4.6); Glucose 222 mg/dL (65-115); HDL Cholesterol 42 mg/dL (60-100); Osmolality Calculated 299 mOsm/kg (285-295); Potassium 4.4 mmol/L (3.5-5.1); Sodium 138 mmol/L (136-145); Total Protein 6.9 g/dL (6.6-8.7); Triglycerides 146 mg/dL (0-150)
[2024-10-06 14:38] LABS: Prostate Specific Antigen < 0.014 ng/mL (0-4)
[2024-10-06] MEDS: leuprolide 22.5 mg Kit IM (14:56)
[2024-10-06 15:12] LABS: Estmated Average Glucose 194; Hemoglobin A1C 8.4 % (4.0-6.0)
[2024-10-07 09:23] LABS: Creatinine Urine, Random 87 mg/dL (39-259); Microalbum Creatinine Ratio Ur 23 mg/dL (0-20)
== END 2024-10-10 23:59 | disposition home or self-care (01) ==
PROVIDERS: Internal Medicine; PCP Family Medicine; Visit Provider Internal Medicine
DX: E78.5 Hyperlipidemia, unspecified (principal)
CPT/HCPCS: 36415; 80053; 80061; 82044; 83036; 84153; 84403; 85025; 93925; 96402; 99213; J9217

== ENCOUNTER 2024-10-12 09:47 | Oncology outpatient (recurring) (ONCR) | payer MEDICARE, OTHER, SELFPAY ==
--- NOTE | 2024-10-12 10:00 | USCV_ITS ---
Brock Bustillos Age: 74 Gender: M : 1950 Exam Date: 10/12/2024 10:14 Ordering Phys: Noel Delvalle MD ([email or web address]) Technologist: MARTÍNEZ [place] [facility] [place]ication: Aortic Stenosis BP: 142 / 80 HR: 65 Rhythm: Sinus Technical Quality: Adequate MEASUREMENTS (Male / Female) Normal Values 2D ECHO LV Diastolic Diameter PLAX 6.0 cm 4.2 - 5.9 / 3.9 - 5.3 cm IVS Diastolic Thickness 1.1 cm 0.6 - 1.0 / 0.6 - 0.9 cm IVS Systolic Thickness 1.8 cm LVPW Diastolic Thickness 1.8 cm 0.6 - 1.0 / 0.6 - 0.9 cm LVPW Systolic Thickness 2.0 cm LVOT Diameter 2.0 cm LV Ejection Fraction 2D Teich 48.0 % LV Ejection Fraction MOD 4C 36.5 % LV Ejection Fraction MOD 2C 34.8 % LV Ejection Fraction 2C AL 35.4 % LA Diameter 4.2 cm RA Systolic Volume 4C AL 18.0 ml RA Systolic Volume 4C MOD 17.2 ml LA Sys Volume AL 69.7 cm cubed LA Sys Volume Index AL 30.8 cm cubed/m squared Aorta at Sinotubular Diameter 2.6 cm M-MODE LA Ao Ratio MM 1.2 AV Cusp Separation MM 2.2 cm DOPPLER AV Peak Velocity 118.7 cm/s LVOT Peak Velocity 77.0 cm/s AV Area Cont Eq vti 1.7 cm squared AV Area Cont Eq pk 2.0 cm squared MV Peak Velocity 107.0 cm/s MV Area PHT 7.7 cm squared Mitral E to A Ratio 0.5 TR Peak Velocity 82.0 cm/s TR Peak Gradient 2.7 mmHg TV Peak E Velocity 63.0 cm/s PV Peak Velocity 114.0 cm/s FINDINGS Left Ventricle Moderately increased left ventricular cavity size. Severely decreased left ventricular systolic function. Left ventricular ejection fraction is estimated at 30 %. There is basal to distal anterior , septal and apical akinesis . Grade I/IV diastolic dysfunction (abnormal relaxation filling pattern), normal to mildly elevated filling pressures. Right Ventricle The right ventricle is normal in size and function. Right Atrium The right atrium is normal in size. Left Atrium The left atrium is normal in size. Mitral Valve Mildly thickened mitral valve. No mitral valve stenosis. Mild mitral valve regurgitation. Aortic Valve Moderate aortic valve calcification. No aortic valve stenosis. Trace aortic valve regurgitation. Tricuspid Valve Structurally normal tricuspid valve without significant stenosis or regurgitation. Pulmonary artery systolic pressure is normal. Pulmonic Valve Structurally normal pulmonic valve without significant stenosis. There is no pulmonic regurgitation. Pericardium Normal pericardium without effusion. Aorta Normal ascending aorta dimension. IVC The inferior vena cava appears normal. CONCLUSIONS Moderately increased left ventricular cavity size. Severely decreased left ventricular systolic function. Left ventricular ejection fraction is estimated at 30 %. There is basal to distal anterior , septal and apical akinesis . Grade I/IV diastolic dysfunction (abnormal relaxation filling pattern), normal to mildly elevated filling pressures. No significant valve abnormalities. There is no pericardial effusion. Right atrial pressure is around 5 mm of mercury. Noel Delvalle MD (Electronically Signed) Final Date: 14 October 2024 10:16 S
== END 2024-11-09 23:59 | disposition home or self-care (01) ==
PROVIDERS: PCP Family Medicine; Visit Provider Internal Medicine
DX: I35.0 Nonrheumatic aortic (valve) stenosis (principal); I51.7 Cardiomegaly; R93.1 Abnormal findings on diagnostic imaging of heart and coronary circulation; I51.89 Other ill-defined heart diseases; I34.0 Nonrheumatic mitral (valve) insufficiency; I35.8 Other nonrheumatic aortic valve disorders
CPT/HCPCS: 93306

== ENCOUNTER → 2024-11-02 07:34 | Outpatient (BNVA) | payer MEDICARE, OTHER, SELFPAY | PROVIDERS: PCP Family Medicine; Visit Provider Podiatrist Foot & Ankle Surgery | DX: E11.69 Type 2 diabetes mellitus with other specified complication (principal); L60.0 Ingrowing nail; L60.3 Nail dystrophy; I73.9 Peripheral vascular disease, unspecified; Z79.84 Long term (current) use of oral hypoglycemic drugs; Z79.4 Long term (current) use of insulin | CPT/HCPCS: 11721; 99213 ==

== ENCOUNTER 2024-11-17 08:11 | Outpatient (CLI) | payer MEDICARE, OTHER, SELFPAY ==
[2024-11-17 09:19] LABS: Hematocrit 37.9 % (37-53); Hemoglobin 12.60 g/dL (11.27-16.99); Mean Corpuscular HGB Conc 33.2 g/dL (30-55); Mean Corpuscular Hemoglobin 28.9 pg (27-33); Mean Corpuscular Volume 86.9 fl (82-101); Nucleated Red Blood Cells % 0 %; Platelet Count 208 10^3/cmm (157-399); Red Blood Count 4.36 10^6/uL (3.85-5.65); White Blood Count 5.87 10^3/uL (3.29-11.43)
[2024-11-17 09:33] LABS: Estmated Average Glucose 200; Hemoglobin A1C 8.6 % (4.0-6.0)
[2024-11-17 09:43] LABS: Creatinine Urine, Random 75 mg/dL (39-259); Microalbum Creatinine Ratio Ur 40 mg/dL (0-20)
[2024-11-17 09:49] LABS: Alanine Aminotransferase 28 U/L (0-41); Albumin Level 4.1 g/dL (3.5-5.2); Alkaline Phosphatase 74 U/L (40-130); Anion Gap 17.3 (5-19); Aspartate Amino Transferase 22 U/L (0-40); Blood Urea Nitrogen 23 mg/dL (8-23); Calcium 9.1 mg/dL (8.5-10.5); Carbon Dioxide 23 mmol/L (22-29); Chloride 107 mmol/L (98-107); Cholesterol 142 mg/dL (0-200); Globulin 2.7 g/dL (1.3-4.6); Glucose 221 mg/dL (65-115); HDL Cholesterol 37 mg/dL (60-100); Osmolality Calculated 306 mOsm/kg (285-295); Potassium 4.3 mmol/L (3.5-5.1); Sodium 143 mmol/L (136-145); Total Protein 6.8 g/dL (6.6-8.7); Triglycerides 190 mg/dL (0-150)
[2024-11-17 10:02] LABS: INR 0.96 (0.8-1.2); Prothrombin Time 13.50 SECONDS (12.1-14.9)
== END 2024-11-17 08:12 | disposition home or self-care (01) ==
LOC: LAB 08:14
PROVIDERS: Internal Medicine; PCP Family Medicine; Visit Provider Internal Medicine Cardiovascular Disease
DX: I50.9 Heart failure, unspecified (principal); E11.9 Type 2 diabetes mellitus without complications; E78.5 Hyperlipidemia, unspecified
CPT/HCPCS: 36415; 80053; 80061; 82044; 83036; 85025; 85610

== ENCOUNTER 2024-11-23 07:28 | Outpatient (CLI) | payer MEDICARE, OTHER, SELFPAY ==
[2024-11-23] VITALS (29 sets, daily range): BP systolic 112–169; BP diastolic 57–97; PULSE 68–90; RESP 10–27; TEMP 36.6; O2SAT 96; BMI 29.1
--- NOTE | 2024-11-23 07:30 | XACV_ITS ---
Ht: 183 cm Wt: 98 kg BSA: 2.25 m2 Gender: Male : 1950 Any Known Allergies: No known allergies Exam Priority: Routine Indication(s): - Decreased LV systolic function Procedure(s): Procedure Description: Diagnostic procedure Procedure Description: PCI procedure Procedure Description: Drug Eluting Coronary Stent Procedure Description: PTCA Procedure Description: Miscellaneous Procedure Description: ACT Procedure Description: Coronary Angiography Adelia ARSHAD; Diagnostic Cath Status: Elective Diagnostic Findings * Left Main: luminal irregularities 20% stenosis, ANISH: 3 flow. * Mid Left Anterior Descending: significant 80% stenosis, ANISH: 3 flow. * Distal Left Anterior Descending: minimal 30% stenosis, ANISH: 3 flow. * Proximal Right Coronary Artery to Distal Right Coronary Artery: minimal 30% stenosis, ANISH: 3 flow. * Proximal Circumflex: minimal 30% stenosis, ANISH: 3 flow. * Mid Circumflex to Distal Circumflex: significant 80% stenosis, ANISH: 3 flow. * Ramus: minimal 30% stenosis, ANISH: 3 flow. * Posterior Descending Right: mild 40% stenosis, ANISH: 3 flow. * Coronary angiography shows right dominance. PCI Status: Elective PCI Indication: New Onset Angina <= 2 months Interventional Findings * Mid Left Anterior Descendin% stenosis treated with a AB TREK 2.50X12 RX BALLOON, MDT R ALFRED 3.0X18 WAQAS, and MDT NC EUPHORA RX [id number] BALLOON. 0% residual stenosis, ANISH: 3 flow. * Mid Circumflex to Distal Circumflex: 80% stenosis treated with a AB TREK 2.50X12 RX BALLOON, MDT R ALFRED 3.0X30 WAQAS, and MDT NC EUPHORA RX [id number] BALLOON. 0% residual stenosis, ANISH: 3 flow. Conclusions 1. There is significant coronary artery disease with four vessel disease. 2. Mid Left Anterior Descending was treated with a Balloon, Drug Eluting Stent, and Balloon. 3. Mid Circumflex to Distal Circumflex was treated with a Balloon, Drug Eluting Stent, and Balloon. Recommendations * 1-Return to inpatient for close monitoring and routine cath care 2-Risk factor modification for secondary prevention 3-Statin and aspirin 81 mg life-long, if tolerated 4-Patient was pre-loaded with 600 mg of Plavix, continue Plavix 75mg p.o. daily for at least one year. We will assess at the end of one year again to continue if further or not 5-Continue optimal medical management 6-Follow up with Dr. Delvalle in four weeks and your primary care in 10 days. Diagnostic RX Recommendation: PCI w/o planned CABG Pressures Phase:Rest AO : / ( 0 ) @ 10:08:00 AM 137 / 74 ( 95 ) @ 10:10:00 AM 116 / 66 ( 88 ) @ 10:21:00 AM 144 / 67 ( 100 ) @ 10:58:00 AM Clinical Evaluation EBL: 5mL-10mL Procedural Details Procedure Consent Obtained. Admit Source: Out Patient. Pre-Procedure Time Out. Identified patient by full name and date of as verbalized by the patient/guarantor. Does the consent match the physician's order: Yes. Accurate & Complete Informed Consent: Yes. Inpatient/Outpatient History & Physical on Chart: Yes. If H&P is completed, is and addenduem needed: N/A Emergent; If yes, is the addendum complete: N/A. Visualize and Verify Site with Patient/Guarantor: N/A. Relevant Radiology Images available: N/A. The risks, benefits, and alternatives of sedation and/or procedure were discussed by physician. The patient agrees to continue. Procedure started. [facility] Clinical Fraility Score: 3: Managing Well. 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 Chest Pain Symptom Assessment: Atypical Angina. Cardiovascular Instability: No. Correct patient, site and procedure confirmed by cath team. Current diagnosis: New Onset Heart Failure; LV Dysfunction. PERRLA. Strong, equal hand active directory architect bilaterally. Lungs clear x 5 lobes. IV Site on Arrival: 20 gauge in the right anticubital. IV Fluids: 0.9% NaCl at KVO. 0 mL infused prior to ammunition assembly laborer. Pre Procedural Pulses: bilateral posterior tibial was Doppled. Pre Procedural Pulses: bilateral dorsalis pedis was Doppled. Pre Procedural Pulses: bilateral radial was 1+. Oxygen started at 3liters/min via nasal canula. right groin was prepped with chloroprep then draped in the usual sterile fashion. left groin was prepped with chloroprep then draped in the usual sterile fashion. right radial was prepped with chloroprep then draped in the usual sterile fashion. Physician notified. Baseline sample Acquired. HR: 66 BPM. Family updated by MD prior to the start of the procedure. Physician arrived. Physician scrubbed in. Immediate Pre-Procedure Time Out. Correct Patient: Yes; Correct Procedure: Yes; Correct Site: Yes; Correct Patient Position: Yes; Correct Supplies: Yes; Dried Flammable Prep: Yes; Blood Products Available: N/A;. Lidocaine 1% infiltrated to the right radial. Arterial access obtained. A 5 slovak Roger catheter in over wire. Multiple views taken of left coronary artery. Catheter redirected to the RCA. Multiple views taken of right coronary artery. Catheter removed over the exchange wire. 6 slovak XB 3.5 guide catheter was inserted over the wire. Guide seated in the LCS. Runthrough guidewire was advanced through the guide catheter to lesion in the mid LAD. Guidewire advanced across lesion. Inflation number : 1 A AB TREK 2.50X12 RX BALLOON was prepped and advanced across the Mid LAD , then inflated to 12 TERA for 0:12 seconds. Inflation number: 2 The AB TREK 2.50X12 RX BALLOON was reinflated across the Mid LAD, to 12 TERA for 0:11 seconds. Balloon out. Results checked. Inflation Number : 3 Gemini Arango ALFRED 3.0X18 WAQAS -Lot Number# [id number] EXP 01/19/2027 was prepped and advanced across the Mid LAD. The stent was deployed at 12 TERA for 0:14 seconds. Stent balloon out over wire. Results checked. Inflation number : 4 A MDT NC EUPHORA RX [id number] BALLOON was prepped and advanced across the Mid LAD , then inflated to 12 TERA for 0:10 seconds. Inflation number: 5 The MDT NC EUPHORA RX [id number] BALLOON was reinflated across the Mid LAD, to 12 TERA for 0:16 seconds. Balloon out. Results checked. ACT drawn. Results 261 seconds. Therapeutic limits - pre-heparin administration 90-150 seconds and monitoring heparin during a vascular procedure >250 seconds. Wire redirected down the Circumflex. Inflation number: 1 The AB TREK 2.50X12 RX BALLOON was reinflated across the Mid CX, to 14 TERA for 0:13 seconds. Inflation number: 2 The AB TREK 2.50X12 RX BALLOON was reinflated across the Mid CX, to 12 TERA for 0:15 seconds. Balloon out. Results checked. Inflation Number : 3 A MDT R ALFRED 3.0X30 WAQAS -Lot Number# [id number] EXP 11/29/2026 was prepped and advanced across the Mid CX. The stent was deployed at 12 TERA for 0:22 seconds. Results checked. Stent balloon out over wire. Inflation number: 4 The MDT NC EUPHORA RX [id number] BALLOON was reinflated across the Mid CX, to 12 TERA for 0:12 seconds. Inflation number: 5 The MDT NC EUPHORA RX [id number] BALLOON was reinflated across the Mid CX, to 12 TERA for 0:12 seconds. Inflation number: 6 The MDT NC EUPHORA RX [id number] BALLOON was reinflated across the Mid CX, to 12 TERA for 0:13 seconds. Balloon out. Results checked. ACT drawn. Results 0 seconds. Therapeutic limits - pre-heparin administration 90-150 seconds and monitoring heparin during a vascular procedure >250 seconds. Wire back into the guide. Results checked. Results checked. Wire out. Guide catheter out over the wire. Physician review of films. Physician scrubbed out. A TR Band was successful obtaining hemostatsis at the Right Radial artery insertion site. TR band placed. Hemostasis obtained. Post Procedure: Pulses reassessed and unchanged. PERRLA. Strong, equal hand active directory architect bilaterally. No VTE prophylaxis required. Medication's Wasted: Lidocaine 1% = 18 ml , Versed 1 mg = , Nitro = 49.4 mg , Heparin = 4000 units , Fentanyl = 25 mcg. Total IV fluids: 50 mL. [id number]. Post-op diagnosis: Significant mid lad and mid circumflex lesions; status post 2 waqas. Complications: None. Fluoro: 8:06. Contrast type used: Omnipaque 300 mgI/mL, 500 mL bottle. Estimated blood loss: 5mL-10mL. Responsiveness - Normal response to verbal stimuli; alert and oriented, PERRLA. Airway - Unaffected, no intervention required; spontaneous ventilation. Circulation: W/N/L, pulses unchanged. Nausea/Vomiting: No. Procedure completed. Patient transferred by wheelchair to 1st floor. Vital chart was stopped. Access Site Site: Right Radial artery Sheath Size: 6 Fr Hemostasis Method: TR Band Hemostasis Success: Successful Procedure Medications Start: 8:51 AM Stop: 8:51 AM Medication: Versed Amount: 1 mg Route: I.V. Start: 8:51 AM Stop: 8:51 AM Medication: Fentanyl Amount: 50 mcg Route: I.V. Start: 9:04 AM Stop: 9:04 AM Medication: Versed Amount: 1 mg Route: I.V. Start: 9:06 AM Stop: 9:06 AM Medication: Nitrogylcerin Amount: 200 mcg Route: I.A. Start: 9:07 AM Stop: 9:07 AM Medication: Heparin Amount: 5000 units Route: I.V. Start: 9:14 AM Stop: 9:14 AM Medication: Heparin Amount: 5000 units Route: I.V. Start: 9:18 AM Stop: 9:18 AM Medication: Versed Amount: 1 mg Route: I.V. Start: 9:27 AM Stop: 9:27 AM Medication: Versed 1 mg and Fentanyl 25 mcg Amount: 1 Route: I.V. Start: 9:27 AM Stop: 9:27 AM Medication: Plavix Amount: 600 mg Route: P.O. Start: 9:36 AM Stop: 9:36 AM Medication: Fentanyl Amount: 25 mcg Route: I.V. Start: 9:42 AM Stop: 9:42 AM Medication: Nitrogylcerin Amount: 200 mcg Route: I.C. Start: 9:43 AM Stop: 9:43 AM Medication: Heparin Amount: 2000 units Route: I.V. Start: 9:47 AM Stop: 9:47 AM Medication: Fentanyl Amount: 50 mcg Route: I.V. Start: 9:54 AM Stop: 9:54 AM Medication: Versed Amount: 1 mg Route: I.V. Start: 9:57 AM Stop: 9:57 AM Medication: Nitrogylcerin Amount: 200 mcg Route: I.C. I, the attending physician, have reviewed and verified all procedure medications. Yes, all medications given per verbal order History/Risk Factors Hypertension: Yes Dyslipidemia: Yes Peripheral Arterial Disease (PAD): Yes Myocardial Infarction (FL): No Obesity: No Renal Disease: No Tobacco Use: Never Prior Interventions PCI: No CABG: No Valve Surgery: No Report Signatures Finalized by Noel Delvalle MD on 12/12/2024 09:08 PM
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
--- NOTE | 2024-11-23 10:12 | PM.PROC ---
Procedure Note: Date of procedure: 11/23/24 Pre-procedure diagnosis: New onset of heart failure, severe LV dysfunction Procedure: Coronary angiogram was performed : Left main: Normal LAD has moderate to severe mid stenosis it is a moderate caliber long vessel Left circumflex has proximal 50% and mid tandem 80% stenosis RCA has diffuse luminal irregularity with anterior takeoff without significant stenosis Given the fact patient has dropped ejection fraction which is 30% despite of optimization of medicine remains fatigued short of breath I believe LAD is contributing to it therefore we proceeded with mid LAD PCI using drug-eluting stent postdilated with noncompliant balloon. Mid circumflex was also treated with single drug-eluting stent postdilated with noncompliant balloon for significant stenosis. Because of right radial spasm would not did not performed left ventriculography will obtain echocardiogram Plan: Patient has been loaded with 60 mg of Plavix, continue aspirin and statin beta-nico, add Entresto, if echocardiogram shows continue ejection fraction of 30% will offer LifeVest Right wrist band as per protocol Continue IV fluid 100 mL/h for next 5 hours Full note to be dictated. Coding Level of Care Code Acute Code for Bernadette Bartlett
--- NOTE | 2024-11-23 10:19 | PC.NURSE ---
Admit Note Patient admitted to room 101 from oil field laborer via wheelchair. Covering service notified. Patient presents with new onset chf, LV dysfunction. Orders reviewed & will continue to monitor. Patient and/or surgical sales representative oriented to environment, equipment, and informed of the following as found in the admission booklet: patient rights & responsibilities, visitor policy, hand hygiene practice. Other education includes: post angiogram wound care instructions, activity restrictions to right wrist and to alert nurse for any chest pain or discomfort, unusual pain, numbness or swelling to right wrist . Patient and/or surgical sales representative verbalizes understanding. Family notified that pt has a foul, strong urine odor and concern for a UTI. Notified AIR MOTOR REPAIRER Amy Jordan if okay to get an order for a urinalysis. Received order.
[2024-11-23 17:14] LABS: Glucose Urine UA Negative (Normal); Nitrate Urine Negative (Negative)
[2024-11-23 17:17] LABS: Add Urine Microscopic? YES
[2024-11-23 17:26] LABS: Specific Gravity, Urine 1.057 (1.005-1.030)
[2024-11-24 04:04] LABS: Hematocrit 33.3 % (37-53); Hemoglobin 10.80 g/dL (11.27-16.99); Mean Corpuscular HGB Conc 32.4 g/dL (30-55); Mean Corpuscular Hemoglobin 28.5 pg (27-33); Mean Corpuscular Volume 87.9 fl (82-101); Nucleated Red Blood Cells % 0 %; Platelet Count 174 10^3/cmm (157-399); Red Blood Count 3.79 10^6/uL (3.85-5.65); White Blood Count 5.75 10^3/uL (3.29-11.43)
[2024-11-24 04:26] LABS: Anion Gap 14.2 (5-19); Blood Urea Nitrogen 19 mg/dL (8-23); Calcium 8.7 mg/dL (8.5-10.5); Carbon Dioxide 25 mmol/L (22-29); Chloride 106 mmol/L (98-107); Creatinine Clr Calc Pharmacy 85.8329; Glucose 138 mg/dL (65-115); Osmolality Calculated 296 mOsm/kg (285-295); Potassium 4.2 mmol/L (3.5-5.1); Sodium 141 mmol/L (136-145)
--- NOTE | 2024-11-24 07:22 | P.DS_ITS ---
<Statement entered by Noel Delvalle MD - 11/24/24 21:17> Patient was evaluated and cared for in conjunction with an advanced practice practitioner. I did not personally examined the patient but reviewed the chart and all pertinent data including imaging, telemetry, and laboratory results. I discussed the patient in detail with the advanced practice practitioner. Please see their note for complete H&P testing result and agreed upon plan of care for the patient. Discharge Providers Date of Admission: 11/23/24 Date of Discharge: November 24, 2024 Attending Provider at Discharge: Noel Delvalle MD Primary Care Provider: Leobardo Cheney MD Reason for Visit Reason for Visit: I50.9 Brief History: The patient is a 74-year-old male presenting with palpitations, tachycardia, and supraventricular tachycardia. He reports a history of irregular heartbeats, which were identified during an EKG performed for carpal tunnel surgery preparation. The EKG showed sinus rhythm with multiple premature ventricular contractions and a left bundle branch block. The patient has a history of diabetes mellitus and hyperlipidemia, managed with rosuvastatin for the past four to five years. He was previously on lisinopril, which was replaced by metoprolol for a year due to surgery considerations, but he has since returned to lisinopril due to elevated blood pressure. He reports arthritis with pain in the hips and back, exacerbated by walking and relieved by sitting. He also notes swelling and diminished circulation in the left leg, which has been evaluated by a justice court judge. The patient has a family history of atrial fibrillation, with his mother, sister, and brother affected. Stress test on 09/27/2024 negative for ischemia, echocardiogram revealed LVEF 30%, coronary angiography was recommended. Hospital Course Hospital Course He underwent coronary angiogram yesterday, revealing moderate to severe mid LAD stenosis, 50% proximal and 80% mid left circumflex stenosis, no significant stenosis of the RCA or left main. Given that he had new onset LV dysfunction, LAD underwent PCI, mid circumflex also treated with MARY x 1. He has done well overnight, no chest pain or shortness of breath this morning. He appears euvolemic. Will start him on Entresto 24/26 mg 1 tablet twice a day, order LifeVest, initiate metoprolol succinate 12.5 mg at bedtime, continue aspirin and Plavix, uptitrated atorvastatin to 20 mg daily from 10 mg. Will provide Lasix 40 mg daily as needed for weight gain greater than 3 pounds in 24 hours or 5 pounds in a week. No complications with right radial cath site. Renal function is normal. Follow-up in [address] Delvalle. Requested he maintain a blood pressure and weight log. Last dose of lisinopril was 11/22/2024, instructions given to start Entresto this evening. Stop hydrochlorothiazide. Physical Exam Const: COMMON NORMALS: no acute distress and patient oriented x3 GENERAL APPEARANCE: cooperative ORIENTATION/CONSCIOUSNESS: Yes awake, Yes oriented to person, Yes oriented to place and Yes oriented to time Chest: COMMONS NORMALS: normal inspection of the chest and normal palpation of entire chest wall CHEST: Yes Symmetrical chest wall rise Resp: COMMON NORMALS: normal respiratory effort, No retractions, No use of accessory muscles and clear to auscultation bilaterally AUSCULTATION: clear to auscultation bilaterally Cardio: COMMON NORMALS: regular rate, regular rhythm, S1 normal heart sound present, S2 normal heart sound present, No gallops present (Cardio), No clicks present (Cardio), No murmurs present (Cardio) and No rub (Cardio) RATE: regular rate RHYTHM: regular rhythm HEART SOUNDS: S1 normal heart sound present and S2 normal heart sound present PERIPHERAL PULSES: radial pulses present positive right 2+ and femoral pulses present positive right 2+ Neuro: COMMON NORMALS: patient oriented x3 and moves all extremities SENSORIUM/ORIENTATION: Yes oriented to person, Yes oriented to place and Yes oriented to time Skin: WOUNDS: Yes surgical site (no hematoma palpable) Details: no odor Discharge Data Studies Completed and Pending Pending at discharge Category Date Time Status [employer] request for service Routine Exams 11/23/24 07:30 Taken Urine Culture Routine Lab 11/23/24 16:39 Received Laboratory Results WBC 5.75 10^3/uL (3.29-11.43) 11/24/24 03:30 RBC 3.79 10^6/uL (3.85-5.65) L 11/24/24 03:30 Hgb 10.80 g/dL (11.27-16.99) L 11/24/24 03:30 Hct 33.3 % (37-53) L 11/24/24 03:30 MCV 87.9 fl (82-101) 11/24/24 03:30 MCH 28.5 pg (27-33) 11/24/24 03:30 MCHC 32.4 g/dL (30-55) 11/24/24 03:30 RDW 13.2 % (12.1-15.1) 11/24/24 03:30 Plt Count 174 10^3/cmm (157-399) 11/24/24 03:30 MPV 10.5 fL (7.4-10.4) H 11/24/24 03:30 Neut % (Auto) 67.0 % 11/24/24 03:30 Lymph % (Auto) 15.1 % 11/24/24 03:30 Bandera % (Auto) 12.2 % 11/24/24 03:30 Eos % (Auto) 4.3 % 11/24/24 03:30 Baso % (Auto) 0.9 % 11/24/24 03:30 Neut # (Auto) 3.85 10^3/uL (1.8-7.7) 11/24/24 03:30 Lymph # (Auto) 0.9 10^3/uL (0.8-4.8) 11/24/24 03:30 Band[place] # (Auto) 0.7 10^3/uL (0.2-0.9) 11/24/24 03:30 Eos # (Auto) 0.3 10^3/uL (0.0-0.8) 11/24/24 03:30 Baso # (Auto) 0.1 10^3/uL (0.0-0.1) 11/24/24 03:30 Nucleated RBC % (auto) 0 % 11/24/24 03:30 Nucleated RBCs # 0.0 /100WBC 11/24/24 03:30 Sodium 141 mmol/L (136-145) 11/24/24 03:30 Potassium 4.2 mmol/L (3.5-5.1) 11/24/24 03:30 Chloride 106 mmol/L (98-107) 11/24/24 03:30 Carbon Dioxide 25 mmol/L (22-29) 11/24/24 03:30 Anion Gap 14.2 (5-19) 11/24/24 03:30 BUN 19 mg/dL (8-23) 11/24/24 03:30 Creatinine 0.9 mg/dL (0.7-1.2) 11/24/24 03:30 GFR Calculation Not Reportable 11/24/24 03:30 Glucose 138 mg/dL (65-115) H 11/24/24 03:30 Calculated Osmolality 296 mOsm/kg (285-295) H 11/24/24 03:30 Calcium 8.7 mg/dL (8.5-10.5) 11/24/24 03:30 Urine Color Yellow (Yellow) 11/23/24 16:39 Urine Appearance Clear (CLEAR) 11/23/24 16:39 Urine pH 6.5 (5-7) 11/23/24 16:39 Ur Specific Nathalie 1.057 (1.005-1.030) H 11/23/24 16:39 Urine Protein Negative (Negative) 11/23/24 16:39 Urine Glucose (UA) Negative (Normal) 11/23/24 16:39 Urine Ketones Negative (Negative) 11/23/24 16:39 Urine Blood Negative (Negative) 11/23/24 16:39 Urine Nitrate Negative (Negative) 11/23/24 16:39 Urine Bilirubin Negative (Negative) 11/23/24 16:39 Urine Urobilinogen 1.0 mg/dL (Negative) 11/23/24 16:39 Ur Leukocyte Esterase Trace (Negative) A 11/23/24 16:39 Urine RBC 0-2 /hpf (0-2) 11/23/24 16:39 Urine WBC 51-100 /hpf (0-5) H 11/23/24 16:39 Ur Squamous Epith Cells 0-5 /hpf (0-5) 11/23/24 16:39 Amorphous Sediment Not Reportable 11/23/24 16:39 Urine Bacteria 2+ /hpf (NONE) H 11/23/24 16:39 Hyaline Casts 0-4 /lpf H 11/23/24 16:39 Vitals Last Vital Signs Temp 97.9 F 11/23/24 10:07 Pulse 75 11/23/24 17:00 Resp 18 11/23/24 17:00 BP 136/77 11/23/24 16:45 O2 Del Method Room Air 11/23/24 07:57 Discharge Plan Discharge Patient Disposition: Home Prescriptions: New sacubitril-valsartan 24-26 mg tablet 1 tab PO BID Qty: 60 0RF Rx Instructions: will try to increase dose over time clopidogrel 75 mg tablet 75 mg PO DAILY Qty: 90 3RF aspirin 81 mg capsule 81 mg PO DAILY Qty: 90 3RF metoprolol succinate 25 mg capsule,sprinkle,ER 24hr 12.5 mg PO BEDTIME Qty: 90 1RF furosemide [Lasix] 40 mg tablet 40 mg PO DAILY PRN (Reason: weight gain) Qty: 90 0RF Rx Instructions: For weight gain greater than 3# in 24 hrs Continued pantoprazole 40 mg tablet,delayed release (DR/EC) 40 mg PO DAILY Rybelsus 14 mg tablet 14 mg PO DAILY acarbose 50 mg tablet 50 mg PO TID 30 Days Qty: 90 0RF acarbose 100 mg tablet 100 mg PO TID Qty: 90 1RF potassium citrate 10 mEq (1,080 mg) tablet extended release 10 meq PO DAILY Qty: 180 3RF (DME) pen needle, diabetic [Sure Comfort Pen Needle] 31 gauge x 5/16 needle See Rx Instructions .ROUTE .COMPLEX Qty: 100 3RF Dose Instruction: USE WITH INSULIN DIRECTED Rx Instructions: USE WITH INSULIN DIRECTED insulin glargine [Lantus Solostar U-100 Insulin] 100 unit/mL (3 mL) insulin pen 38 unit SUBCUT QAM Changed rosuvastatin 10 mg tablet 20 mg PO DAILY Qty: 90 0RF Held metformin 500 mg tablet extended release 24 hr 1,000 mg PO BID Hold Instructions: Resume on 11/27/24. Discontinued lisinopril 20 mg tablet 20 mg PO QPM hydrochlorothiazide 25 mg tablet 25 mg PO QPM Discharge Order = DC NOW: Discharge Order (Routine); Ordered 11/24/24 Ordered By: Amy Jordan Referrals: Noel Delvalle MD [Physician, Cardiology] - 12/10/24 10:15 am Leobardo Cheney MD [Primary Care Provider, Family Practice] - 12/03/24 1:30 pm Diet: Cardiac and Diabetic Activity: Increase activity as tolerated Patient Instructions: Metoprolol (By mouth) (Lopressor, Toprol XL), Furosemide (By mouth) (Lasix), Aspirin (By mouth), Clopidogrel (By mouth) (Plavix), Sacubitril/Valsartan (By mouth) (Entresto, Entresto Sprinkle), Heart Failure (DC), Coronary Angioplasty (DC), Hypertension (DC), Cardiac Rehabilitation (DC), Coronary Intravascular Stent Placement (DC), CHF Stoplight, Post Angiogram Home Care Instructions Activity Restrictions/Additional Instructions: No lifting over 5 pounds with the right arm for 4 days. Start the new medicine for heart failure Entresto this evening. Keep track of your blood pressures and bring them to your next appointment on 12/10/[address] Delvalle. Hold metformin until the . Print Language: Albanian Discharge Date/Time: 11/24/24 10:35 Discharge Attestations Time Spent in Discharge Care*: less than 30 min Quality Metrics Clinical Quality Measures [ No reported AMI, CVA or VTE this stay] Coding Level of Care Code Acute Code for Chg Tri
[2024-11-24 08:16] VITALS: BP 154/79; PULSE 73; RESP 17; TEMP 36.7; O2SAT 97
== END 2024-11-24 10:35 | disposition home or self-care (01) ==
LOC: CCL 07:30 → CSU 10:13
PROVIDERS: Nurse Practitioner Family; PCP Family Medicine; Visit Provider Internal Medicine Cardiovascular Disease
DX: I25.118 Atherosclerotic heart disease of native coronary artery with other forms of angina pectoris (principal); I10 Essential (primary) hypertension; E78.5 Hyperlipidemia, unspecified; I73.9 Peripheral vascular disease, unspecified; E11.9 Type 2 diabetes mellitus without complications; Z85.46 Personal history of malignant neoplasm of prostate; Z82.49 Family history of ischemic heart disease and other diseases of the circulatory system; Z79.4 Long term (current) use of insulin; K21.9 Gastro-esophageal reflux disease without esophagitis; Z79.84 Long term (current) use of oral hypoglycemic drugs; I25.2 Old myocardial infarction; R00.2 Palpitations; I47.10 Supraventricular tachycardia, unspecified
CPT/HCPCS: 36415; 80048; 81001; 85025; 85347; 87077; 87086; 87186; 93454; 99152; 99153; C1725; C1769; C1874; C1887; C1894; C9600; C9601; J1644; J2250; J3010; J3490; J7030; J9999; Q0163; Q9967

== ENCOUNTER → 2024-12-10 09:59 | Outpatient (BNVA) | payer MEDICARE, OTHER, SELFPAY | PROVIDERS: PCP Family Medicine; Visit Provider Internal Medicine Cardiovascular Disease | DX: I11.0 Hypertensive heart disease with heart failure (principal); I50.9 Heart failure, unspecified; I25.10 Atherosclerotic heart disease of native coronary artery without angina pectoris; I65.29 Occlusion and stenosis of unspecified carotid artery; Z95.811 Presence of heart assist device | CPT/HCPCS: 99214 ==

== ENCOUNTER 2024-12-27 09:33 | Outpatient (RCR) | payer MEDICARE, OTHER, SELFPAY | END 2025-01-09 23:59 | disposition home or self-care (01) | LOC: SPT 09:33 | PROVIDERS: PCP Family Medicine; Visit Provider General Practice | DX: M48.062 Spinal stenosis, lumbar region with neurogenic claudication (principal) | CPT/HCPCS: 97110; 97161 ==

== ENCOUNTER 2024-12-29 11:54 | Oncology outpatient (recurring) (ONCR) | payer MEDICARE, OTHER, SELFPAY ==
[2024-12-29 12:09] LABS: Hematocrit 38.5 % (37-53); Hemoglobin 12.60 g/dL (11.27-16.99); Mean Corpuscular HGB Conc 32.7 g/dL (30-55); Mean Corpuscular Hemoglobin 29.0 pg (27-33); Mean Corpuscular Volume 88.7 fl (82-101); Nucleated Red Blood Cells % 0 %; Platelet Count 204 10^3/cmm (157-399); Red Blood Count 4.34 10^6/uL (3.85-5.65); White Blood Count 6.38 10^3/uL (3.29-11.43)
[2024-12-29 12:30] LABS: Alanine Aminotransferase 22 U/L (0-41); Albumin Level 4.3 g/dL (3.5-5.2); Alkaline Phosphatase 66 U/L (40-130); Anion Gap 15.5 (5-19); Aspartate Amino Transferase 21 U/L (0-40); Blood Urea Nitrogen 23 mg/dL (8-23); Calcium 9.1 mg/dL (8.5-10.5); Carbon Dioxide 26 mmol/L (22-29); Chloride 104 mmol/L (98-107); Globulin 2.4 g/dL (1.3-4.6); Glucose 167 mg/dL (65-115); Osmolality Calculated 299 mOsm/kg (285-295); Potassium 4.5 mmol/L (3.5-5.1); Sodium 141 mmol/L (136-145); Total Protein 6.7 g/dL (6.6-8.7)
[2024-12-29 14:35] LABS: Prostate Specific Antigen < 0.014 ng/mL (0-4)
== END 2025-01-09 23:59 | disposition home or self-care (01) ==
LOC: ONCMED 11:54
PROVIDERS: Internal Medicine Medical Oncology; PCP Family Medicine; Visit Provider Nurse Practitioner Family
DX: Z08 Encounter for follow-up examination after completed treatment for malignant neoplasm (principal); Z85.46 Personal history of malignant neoplasm of prostate; Z85.89 Personal history of malignant neoplasm of other organs and systems; R73.9 Hyperglycemia, unspecified; N39.0 Urinary tract infection, site not specified; R32 Unspecified urinary incontinence; Z90.79 Acquired absence of other genital organ(s); Z92.3 Personal history of irradiation; Z92.21 Personal history of antineoplastic chemotherapy; Z98.890 Other specified postprocedural states
CPT/HCPCS: 36415; 80053; 84153; 85025; 99214

== ENCOUNTER 2025-01-10 05:00 | Outpatient (RCR) | payer MEDICARE, OTHER, SELFPAY | END 2025-02-09 23:59 | disposition home or self-care (01) | LOC: SPT 05:00 | PROVIDERS: PCP Family Medicine; Visit Provider General Practice | DX: M48.062 Spinal stenosis, lumbar region with neurogenic claudication (principal) | CPT/HCPCS: 97110 ==

== ENCOUNTER → 2025-01-11 08:06 | Outpatient (BNVA) | payer MEDICARE, OTHER, SELFPAY | PROVIDERS: PCP Family Medicine; Visit Provider Podiatrist Foot & Ankle Surgery | DX: E11.69 Type 2 diabetes mellitus with other specified complication (principal); L60.3 Nail dystrophy; I73.9 Peripheral vascular disease, unspecified; Z79.4 Long term (current) use of insulin; Z79.84 Long term (current) use of oral hypoglycemic drugs | CPT/HCPCS: 11721 ==